=== PATIENT | male | born 1950 | race Caucasian/White ===

== ENCOUNTER 2019-08-16 09:09 | Observation (INO) | payer OTHER ==
[2019-08-16] MEDS ORDERED: ASPIRIN 81 MG CHEWABLE TABLETS PO ONE (09:33)
[2019-08-16] MEDS ORDERED: ASPIRIN COATED 81 MG TABLET.EC ONE (09:45)
--- NOTE | 2019-08-16 10:01 | PDOC ---
History of Present Illness - General Chief Complaint: Chest Pain Stated Complaint: CHEST PAIN Time Seen by Provider: 08/16/19 09:17 - History of Present Illness Initial Comments: 08/16/19 09:57 Mr. Guerrero is a 68 yo male w/ pmh of hepatic fibrosis who presents for evaluation of 2 day history of chest pain. 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 Patient took 2 baby aspirin last night and 800mg motrin for the pain. Denies any other symptoms however reports his pain has started to radiate along his L shoulder. No other complaints at this time. Past History - Past Medical History Allergies/Adverse Reactions: Allergies Allergy/AdvReac Type Severity Reaction Status Date / Time No Known Allergies Allergy Verified 08/16/19 09:13 Home Medications: Ambulatory Orders Omeprazole Magnesium [Prilosec Otc] 20 mg PO DAILY 08/16/19 Asthma: Yes Cancer: Yes (prostate) COPD: No - Psycho Social/Smoking Cessation Hx Smoking History: Never smoked Information on smoking cessation initiated: No Hx Alcohol Use: Yes Drug/Substance Use Hx: No Review of Systems - Review of Systems Comments:: 08/16/19 10:00 GENERAL/CONSTITUTIONAL: No fever or chills. No weakness. HEAD, EYES, EARS, NOSE AND THROAT: No change in vision. No ear pain or discharge. No sore throat. CARDIOVASCULAR: +Chest pain as described. No shortness of breath RESPIRATORY: No cough, wheezing, or hemoptysis. GASTROINTESTINAL: No nausea, vomiting, diarrhea or constipation. GENITOURINARY: No dysuria, frequency, or change in urination. MUSCULOSKELETAL: No joint or muscle swelling or pain. No neck or back pain. SKIN: No rash NEUROLOGIC: No headache, vertigo, loss of consciousness, or change in strength/ sensation. ENDOCRINE: No increased thirst. No abnormal weight change HEMATOLOGIC/LYMPHATIC: No anemia, easy bleeding, or history of blood clots. ALLERGIC/IMMUNOLOGIC: No hives or skin allergy. *Physical Exam - Vital Signs Last Vital Signs Temp Pulse Resp BP Pulse Ox 97.5 F L 65 18 153/81 98 08/16/19 09:11 08/16/19 09:11 08/16/19 09:11 08/16/19 09:11 08/16/19 09:11 - Physical Exam Comments: 08/16/19 10:00 GENERAL: Awake, alert, and fully oriented, in no acute distress HEAD: No signs of trauma, normocephalic, atraumatic EYES: PERRLA, EOMI, sclera anicteric, conjunctiva clear ENT: Auricles normal inspection, hearing grossly normal, nares patent, oropharynx clear without exudates. Moist mucosa NECK: Normal ROM, supple, no lymphadenopathy, JVD, or masses LUNGS: No distress, speaks full sentences, clear to auscultation bilaterally HEART: Regular rate and rhythm, normal S1 and S2, no murmurs, rubs or gallops, peripheral pulses normal and equal bilaterally. ABDOMEN: Soft, nontender, normoactive bowel sounds. No guarding, no rebound. No masses EXTREMITIES: Normal inspection, Normal range of motion, no edema. No clubbing or cyanosis. NEUROLOGICAL: Cranial nerves II through XII grossly intact. Normal speech, normal gait, no focal sensorimotor deficits SKIN: Warm, Dry, normal turgor, no rashes or lesions noted. Heart Score/ECG Review - History History: Moderately suspicious - Electrocardiogram EKG: Normal - Age Age: >/= 65 - Risk Factors Based on the list above the patient has:: No risk factors known - Troponin Troponin: </= normal limit - Score Heart Score - Total: 3 ED Treatment Course - LABORATORY CBC & Chemistry Diagram: 08/16/19 09:50 08/16/19 09:50 - RADIOLOGY Radiology Studies Ordered: Category Date Time Status CHEST X-RAY PORTABLE* [RAD] Stat Radiology 08/16/19 09:33 Taken - Medications Given in the ED: ED Medications Discontinued Medications Generic Name Dose Route Start Last Admin Trade Name Freq PRN Reason Stop Dose Admin Aspirin 324 mg 08/16/19 09:33 08/16/19 09:55 Asa - PO 08/16/19 09:34 324 mg ONCE ONE Administration Medical Decision Making - Medical Decision Making 08/16/19 11:01 Mr. Guerrero is a 68 yo male w/ pmh as described who presents for evaluation of chest pain concerning for MSK strain vs. ACS vs. pulmonary process. Patient evaluated with EKG, CXR, cardiac labs. EKG sinus sandeep to 54 with normal access , normal intervals, no ST elevation or depression. 08/16/19 11:53 Labs non-contributory as below. Discussed patient with PCP who has not seen patient recently. Last Echo 2012 and showed moderate MR with 55% EF. Patient will come in to hospital for further evaluation by cardiology and echo. Inpatient team paged for admission. 08/16/19 12:02 CXR normal. 08/16/19 13:29 Patient admitted to hospitalist for further evaluation. Laboratory Results - last 24 hr 08/16/19 08/16/19 08/16/19 09:50 09:50 09:50 WBC 3.1 L RBC 3.70 L Hgb 13.9 Hct 39.3 MCV 106.0 H MCH 37.4 H MCHC 35.3 RDW 14.1 Plt Count 226 MPV 6.2 L Absolute Neuts (auto) 1.3 L Neutrophils % 41.6 L Lymphocytes % 40.6 H Monocytes % 12.7 H Eosinophils % 4.2 Basophils % 0.9 Nucleated RBC % 0 PT with INR INR PTT (Actin FS) Cancelled Sodium 142 Potassium 3.3 L Chloride 107 Carbon Dioxide 25 Anion Gap 11 BUN 5.0 L Creatinine 0.6 Est GFR (CKD-EPI)AfAm 118.07 Est GFR (CKD-EPI)NonAf 101.87 Random Glucose 82 Calcium 8.1 L Total Bilirubin 1.3 H AST 112 H ALT 36 Alkaline Phosphatase 124 H Creatine Kinase 313 H Creatine Kinase Index 1.9 CK-MB (CK-2) 6.0 H Troponin I 0.03 Total Protein 6.7 Albumin 3.3 L Alcohol, Quantitative 174.9 H 08/16/19 09:50 WBC RBC Hgb Hct MCV MCH MCHC RDW Plt Count MPV Absolute Neuts (auto) Neutrophils % Lymphocytes % Monocytes % Eosinophils % Basophils % Nucleated RBC % PT with INR 12.00 INR 1.02 PTT (Actin FS) 30.0 Sodium Potassium Chloride Carbon Dioxide Anion Gap BUN Creatinine Est GFR (CKD-EPI)AfAm Est GFR (CKD-EPI)NonAf Random Glucose Calcium Total Bilirubin AST ALT Alkaline Phosphatase Creatine Kinase Creatine Kinase Index CK-MB (CK-2) Troponin I Total Protein Albumin Alcohol, Quantitative Discharge - Discharge Information Problems reviewed: Yes Clinical Impression/Diagnosis: Chest pain Qualifiers: Chest pain type: unspecified Qualified Code(s): R07.9 - Chest pain, unspecified - Admission Yes - Follow up/Referral Referrals: Abelardo Trotter MD [Primary Care Provider] - - Patient Discharge Instructions - Post Discharge Activity
--- NOTE | 2019-08-16 10:05 | PDOC ---
Attending Attestation - Resident Resident Name: Eleazar High - ED Attending Attestation I have performed the following: I have examined & evaluated the patient, The case was reviewed & discussed with the resident, I agree w/resident's findings & plan, Exceptions are as noted - HPI HPI: 08/16/19 10:02 68 yo male no pmhx , here with c/o chest pain. started two days ago. 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 today had similar pain Denies any leg swelling no associated shortness of breath diaphoresis or nausea. Patient has not had any recent travel no history of PE or DVT. No history of similar pain in the past. Did have a nuclear stress test approximately 4 years ago which she states was normal by a doctor in [place]. No fevers chills no cough did take 2 baby aspirins last evening did not take any this morning - Physicial Exam PE: 08/16/19 10:04 Awake alert no acute distress lungs are clear bilaterally there is no chest wall tenderness heart is regular without any murmurs rubs or gallops abdomen is soft and nontender skin is warm and dry extremities are warm well perfused there is no noted peripheral edema or calf tenderness neurologically patient is awake alert oriented x3. Pulses are symmetric - Medical Decision Making 08/16/19 10:04 5-year-old male no past medical history here today complaining of chest pain. Differential angina MSK strain infection such as pneumonia GERD plan CBC CMP troponin EKG chest x-ray. Due to the patient's age and concerning story of his symptoms will most likely require observation on telemetry 08/16/19 12:14 pt etoh level 174. ekg with out acute ischemic changes. cXR negative. labs noted for mildly low wbc, noted min LFT elevation ( pt has had in the past ) and trop negative. CKMB is 6. will admit to telemetry r/o ACS. may require CIWA precautions. states drinks 4 - 5 drinks daily. Heart Score/ECG Review - History History: Highly suspicious - Electrocardiogram EKG: Non specific repolarization disturbance - Age Age: >/= 65 - Risk Factors Based on the list above the patient has:: 1-2 risk factors - Troponin Troponin: </= normal limit - Score Heart Score - Total: 6 #1 General ECG Interpretation: Sinus Rhythm, Normal Rate (54), Normal Intervals, No acute ischemic changes
--- NOTE | 2019-08-16 10:14 | EKG ---
Test Reason : Blood Pressure : / mmHG Vent. Rate : 054 BPM Atrial Rate : 054 BPM P-R Int : 136 ms QRS Dur : 092 ms QT Int : 428 ms P-R-T Axes : 016 057 052 degrees QTc Int : 405 ms SINUS BRADYCARDIA OTHERWISE NORMAL ECG NO PREVIOUS ECGS AVAILABLE Confirmed by SWEETIE MIRANDA MD ([id number]) on 08/16/2019 10:13:53 AM Referred By: Confirmed By:SWEETIE MIRANDA MD
[2019-08-16 10:25] LABS: BASO % 0.9 % (0-2.0); EOS % 4.2 % (0-4.5); HEMATOCRIT 39.3 % (35.4-49); HEMOGLOBIN 13.9 GM/dL (11.7-16.9); LYMPH % 40.6 % (8-40); MCH 37.4 pg (25.7-33.7); MCHC 35.3 g/dl (32.0-35.9); MEAN PLT VOLUME 6.2 fl (7.5-11.1); MONO % 12.7 % (3.8-10.2); NEUT % 41.6 % (42.8-82.8); PLATELET COUNT 226 K/MM3 (134-434); RDW 14.1 % (11.9-15.9); WHITE BLOOD COUNT 3.1 K/mm3 (4.0-10.0)
[2019-08-16 10:56] LABS: ALBUMIN 3.3 g/dl (3.4-5.0); BILIRUBIN,TOTAL 1.3 mg/dL (0.2-1); CALCIUM 8.1 mg/dL (8.5-10.1); CREATININE 0.6 mg/dL (0.55-1.3); POTASSIUM 3.3 mmol/L (3.5-5.1); TOT PROT 6.7 g/dl (6.4-8.2)
[2019-08-16 10:57] LABS: INR 1.02 (0.83-1.09)
[2019-08-16 13:09] LABS: ANISOCYTOSIS 1+; MACROCYTOSIS 1+; PLATELET ESTIMATE NORMAL
[2019-08-16] MEDS ORDERED: ACETAMINOPHEN 325 MG TABLET (FP) PO PRN (18:44)
--- NOTE | 2019-08-16 18:47 | HP ---
Admitting History and Physical - Primary Care Physician PCP: Shnaiqua Zelaya - Admission History of Present Illness: 68 yo male no pmhx , here with c/o chest pain. started two days ago. 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 today had similar pain Denies any leg swelling no associated shortness of breath diaphoresis or nausea. Patient has not had any recent travel no history of PE or DVT. No history of similar pain in the past. Did have a nuclear stress test approximately 4 years ago which she states was normal by a doctor in [place]. No fevers chills no cough did take 2 baby aspirins last evening did not take any this morning - Smoking History Smoking history: Never smoked - Alcohol/Substance Use Hx Alcohol Use: Yes Home Medications - Allergies Allergies/Adverse Reactions: Allergies Allergy/AdvReac Type Severity Reaction Status Date / Time No Known Allergies Allergy Verified 08/16/19 09:13 - Home Medications Home Medications: Ambulatory Orders Omeprazole Magnesium [Prilosec Otc] 20 mg PO DAILY 08/16/19 Physical Examination Vital Signs: Vital Signs Temperature 97.8 F 08/16/19 18:17 Pulse Rate 66 08/16/19 18:17 Respiratory Rate 16 08/16/19 18:17 Blood Pressure 156/86 08/16/19 18:17 O2 Sat by Pulse Oximetry (%) 97 08/16/19 18:17 Constitutional: Yes: No Distress HENT: Yes: Atraumatic Neck: Yes: Supple Cardiovascular: Yes: Regular Rate and Rhythm Respiratory: Yes: CTA Bilaterally Gastrointestinal: Yes: Normal Bowel Sounds Extremities: Yes: WNL Edema: No Neurological: Yes: Alert, Oriented Labs: CBC, BMP 08/16/19 09:50 08/16/19 09:50 Imaging - Results X-ray: Report Reviewed Problem List - Problems (1) Chest pain Assessment/Plan: tele monitoring fu cardiac profile cardiology consult Code(s): R07.9 - CHEST PAIN, UNSPECIFIED Qualifiers: Chest pain type: unspecified Qualified Code(s): R07.9 - Chest pain, unspecified (2) Alcohol abuse Assessment/Plan: drinks 2-3 times per week Code(s): F10.10 - ALCOHOL ABUSE, UNCOMPLICATED (3) HTN (hypertension) Assessment/Plan: monitor will start meds awaiting cardio input Code(s): I10 - ESSENTIAL (PRIMARY) HYPERTENSION Assessment/Plan Laboratory Tests 08/16/19 08/16/19 08/16/19 09:50 09:50 09:50 WBC 3.1 L RBC 3.70 L Hgb 13.9 Hct 39.3 MCV 106.0 H MCH 37.4 H MCHC 35.3 RDW 14.1 Plt Count 226 MPV 6.2 L Absolute Neuts (auto) 1.3 L Neutrophils % 41.6 L Lymphocytes % 40.6 H Monocytes % 12.7 H Eosinophils % 4.2 Basophils % 0.9 Nucleated RBC % 0 Hypochromia 0 Platelet Estimate Normal Polychromasia 2+ Poikilocytosis 0 Anisocytosis 1+ Microcytosis 0 Macrocytosis 1+ PT with INR INR PTT (Actin FS) Cancelled Sodium 142 Potassium 3.3 L Chloride 107 Carbon Dioxide 25 Anion Gap 11 BUN 5.0 L Creatinine 0.6 Est GFR (CKD-EPI)AfAm 118.07 Est GFR (CKD-EPI)NonAf 101.87 Random Glucose 82 Calcium 8.1 L Total Bilirubin 1.3 H AST 112 H ALT 36 Alkaline Phosphatase 124 H Creatine Kinase 313 H Creatine Kinase Index 1.9 CK-MB (CK-2) 6.0 H Troponin I 0.03 Total Protein 6.7 Albumin 3.3 L Alcohol, Quantitative 174.9 H 08/16/19 09:50 WBC RBC Hgb Hct MCV MCH MCHC RDW Plt Count MPV Absolute Neuts (auto) Neutrophils % Lymphocytes % Monocytes % Eosinophils % Basophils % Nucleated RBC % Hypochromia Platelet Estimate Polychromasia Poikilocytosis Anisocytosis Microcytosis Macrocytosis PT with INR 12.00 INR 1.02 PTT (Actin FS) 30.0 Sodium Potassium Chloride Carbon Dioxide Anion Gap BUN Creatinine Est GFR (CKD-EPI)AfAm Est GFR (CKD-EPI)NonAf Random Glucose Calcium Total Bilirubin AST ALT Alkaline Phosphatase Creatine Kinase Creatine Kinase Index CK-MB (CK-2) Troponin I Total Protein Albumin Alcohol, Quantitative Active Medications Generic Name Dose Route Start Last Admin Trade Name Freq PRN Reason Stop Dose Admin Acetaminophen 650 mg 08/16/19 18:44 Tylenol - PO Q6H PRN FEVER Pantoprazole Sodium 20 mg 08/17/19 10:00 Protonix - PO DAILY KEELY Active Medications Generic Name Dose Route Start Last Admin Trade Name Freq PRN Reason Stop Dose Admin Acetaminophen 650 mg 08/16/19 18:44 Tylenol - PO Q6H PRN FEVER Amlodipine Besylate 5 mg 08/17/19 15:45 08/17/19 15:41 Norvasc - PO 5 mg DAILY KEELY Administration Pantoprazole Sodium 20 mg 08/17/19 10:00 08/17/19 09:41 Protonix - PO 20 mg DAILY KEELY Administration Potassium Chloride 40 meq 08/17/19 17:15 K-Dur - PO DAILY KEELY
[2019-08-17 01:01] VITALS: BMI 20.9
[2019-08-17] MEDS ORDERED: FLU VACCINE QUAD 60 MCG/0.5 ML (MDV 19-20) IM ONE (10:00)
[2019-08-17] MEDS ORDERED: PATIENT'S OWN MEDICATION (NON-FORMULARY) (Omeprazole Magnesium [Prilosec Otc] 20 MG) PO SCH (10:00)
[2019-08-17] MEDS ORDERED: PANTOPRAZOLE 20 MG TABLET (FP) PO SCH (10:00)
--- NOTE | 2019-08-17 12:40 | CON.CARD ---
Consult Consult Specialty:: Cardiology Referred by:: Dr. 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 He took Motrin initially but pain continued so he came in for further evaluation. Currently, he feels better. He denies shortness of breath or palpitations. He denies paroxysmal nocturnal dyspnea or orthopnea. He denies fever or chills. He denies nausea, vomiting, diarrhea or abdominal pain. He denies headache or lightheadedness. - History Source History Provided By: Patient, Medical Record Limitations to Obtaining History: No Limitations - Past Medical History Hepatobiliary: Yes: Other (Hepatic fibrosis) - Past Surgical History Past Surgical History: Yes: None - Alcohol/Substance Use Hx Alcohol Use: Yes (Social) - Smoking History Smoking history: Former smoker Have you smoked in the past 12 months: No If you are a former smoker, when did you quit?: 20 years ago Home Medications - Allergies Allergies/Adverse Reactions: Allergies Allergy/AdvReac Type Severity Reaction Status Date / Time No Known Allergies Allergy Verified 08/16/19 09:13 - Home Medications Home Medications: Ambulatory Orders Omeprazole Magnesium [Prilosec Otc] 20 mg PO DAILY 08/16/19 Family Medical History Family History: Denies Review of Systems - Review of Systems Constitutional: denies: Chills, Fever Cardiovascular: reports: Chest Pain. denies: Palpitations, Shortness of Breath Respiratory: denies: Cough, Hemoptysis, Orthopnea, PND, SOB, SOB on Exertion Gastrointestinal: denies: Abdominal Pain, Constipation, Diarrhea, Melena, Nausea , Rectal Bleeding, Vomiting Genitourinary: denies: Dysuria, Hematuria Musculoskeletal: denies: Back Pain, Joint Pain Neurological: denies: Dizziness, Headache, Seizure, Syncope Vital Signs: Vital Signs Temperature 98 F 08/17/19 10:00 Pulse Rate 88 08/17/19 10:00 Respiratory Rate 18 08/17/19 10:00 Blood Pressure 150/62 08/17/19 10:00 O2 Sat by Pulse Oximetry (%) 97 08/16/19 22:00 Eyes: Yes: Conjunctiva Clear, PERRL HENT: Yes: Atraumatic Neck: Yes: Supple Respiratory: Yes: Regular, CTA Bilaterally Gastrointestinal: Yes: Normal Bowel Sounds, Soft. No: Tenderness Cardiovascular: Yes: Regular Rate and Rhythm JVD: No Carotid Bruit: No PMI: Non-Displaced Heart Sounds: Yes: S1, S2. No: Gallop Murmur: No: Systolic Murmur, Diastolic Murmur Edema: No - Other Data Labs, Other Data: CBC, BMP 08/16/19 09:50 08/16/19 09:50 INR, PTT INR 1.02 (0.83-1.09) 08/16/19 09:50 Sinus bradycardia otherwise WNL Imaging - Results Chest X-ray: Report Reviewed (Unremarkable) EKG: Report Reviewed Problem List - Problems (1) HTN (hypertension) Code(s): I10 - ESSENTIAL (PRIMARY) HYPERTENSION (2) Hepatic fibrosis Code(s): K74.0 - HEPATIC FIBROSIS (3) Chest pain Code(s): R07.9 - CHEST PAIN, UNSPECIFIED Qualifiers: Chest pain type: unspecified Qualified Code(s): R07.9 - Chest pain, unspecified Assessment/Plan 1. Chest pain syndrome likely musculoskeletal 2. History of hepatic fibrosis 3. HTN PLAN: 1. Echocardiography to assess LV/RV and valvular function 2. Troponin negative 3. If BP remains elevated, consider anti-hypertensives such as Amlodipine or ACEI or ARB 4. If need further cardiac work up, can be done as outpatient If above negative, discharge planning Gregorio Rosas MD
--- NOTE | 2019-08-17 12:59 | ECHO ---
Version: 1 Name: VANDANA GARIBAY Exam: Adult Echocardiogram Study Date: 08/17/2019, 8:29 AM Age: 68 Years MMode/2D Measurements & Calculations IVSd: 0.77 cm LVIDs: 3.4 cm LVIDd: 4.7 cm LVPWd: 0.73 cm LVOT diam: 2.23 cm Ao root diam: 3.6 cm LA dimension: 3.0 cm Doppler Measurements & Calculations MV E max jj: 42.0 cm/sec Med E/e': 6.0 MV A max jj: 76.0 cm/sec Med Peak E' Jj: 7.0 cm/sec MV E/A: 0.55 Lat E/e': 6.2 Lat Peak E' Jj: 6.8 cm/sec MR max P.3 mmHg Ao max P.1 mmHg Ao V2 max: 123.8 cm/sec Left Ventricle The left ventricular size, thickness and function are normal. Ejection Fraction = 65%. The transmitr al spectral Doppler flow pattern is suggestive of impaired LV relaxation. Right Ventricle The right ventricle is normal in size and function. Atria Normal left and right atrial size and function. Mitral Valve There is mild mitral annular calcification. There is trace to mild mitral regurgitation. Tricuspid Valve The tricuspid valve is normal in structure and function. Right ventricular systolic pressure is norm al. Aortic Valve There is mild aortic valve thickening. No hemodynamically significant valvular aortic stenosis. Pulmonic Valve The pulmonic valve is not well visualized. Great Vessels The aortic root is normal size. Normal aortic arch, descending and ascending aorta. Pericardium/Pleura There is no pericardial effusion. Summary Statements The left ventricular size, thickness and function are normal. Ejection Fraction = 65%. The right ventricle is normal in size and function. Normal left and right atrial size and function. There is mild aortic valve thickening. No hemodynamically significant valvular aortic stenosis. There is mild mitral annular calcification. There is trace to mild mitral regurgitation. The tricuspid valve is normal in structure and function. MD Susanna Connor08/17/2019, 11:58 AM Ordering Physician: Shaniqua Zelaya Referring Physician: SHANIQUA SO Performed By: Terrie Alcantar
[2019-08-17 13:57] VITALS: TEMP 98.2
--- NOTE | 2019-08-17 15:33 | PN ---
Progress Note, Physician - Current Medication List Current Medications: Active Medications Acetaminophen (Tylenol -) 650 mg PO Q6H PRN PRN Reason: FEVER Pantoprazole Sodium (Protonix -) 20 mg PO DAILY KEELY Last Admin: 08/17/19 09:41 Dose: 20 mg - Objective Vital Signs: Vital Signs Temperature 98.2 F 08/17/19 13:57 Pulse Rate 81 08/17/19 13:57 Respiratory Rate 20 08/17/19 13:57 Blood Pressure 143/77 08/17/19 13:57 O2 Sat by Pulse Oximetry (%) 98 08/17/19 10:44 Labs: CBC, BMP 08/16/19 09:50 08/16/19 09:50 INR, PTT INR 1.02 (0.83-1.09) 08/16/19 09:50 Problem List - Problems (1) Chest pain Code(s): R07.9 - CHEST PAIN, UNSPECIFIED Qualifiers: Chest pain type: unspecified Qualified Code(s): R07.9 - Chest pain, unspecified
[2019-08-17] MEDS ORDERED: amLODIPine BESYLATE 5 MG TABLET (FP) PO SCH (15:45)
[2019-08-17 16:52] VITALS: BP 141/102; PULSE 84
[2019-08-17 16:59] LABS: ALBUMIN 3.6 g/dl (3.4-5.0); BILIRUBIN,TOTAL 3.1 mg/dL (0.2-1); BLOOD UREA NITROGEN 7.5 mg/dL (7-18); CALCIUM 8.4 mg/dL (8.5-10.1); CREATININE 0.7 mg/dL (0.55-1.3); POTASSIUM 3.4 mmol/L (3.5-5.1)
--- NOTE | 2019-08-17 17:08 | DS ---
Physical Examination Vital Signs: Vital Signs Temperature 98.2 F 08/17/19 13:57 Pulse Rate 84 08/17/19 16:51 Respiratory Rate 18 08/17/19 16:51 Blood Pressure 141/102 H 08/17/19 16:51 O2 Sat by Pulse Oximetry (%) 98 08/17/19 10:44 Constitutional: Yes: Anxious HENT: Yes: Atraumatic Neck: Yes: Supple Cardiovascular: Yes: Regular Rate and Rhythm Respiratory: Yes: CTA Bilaterally Gastrointestinal: Yes: Normal Bowel Sounds Extremities: Yes: WNL Neurological: Yes: Alert, Oriented Labs: CBC, BMP 08/16/19 09:50 08/17/19 14:05 Discharge Summary Problems reviewed: Yes Reason For Visit: CHEST PAIN Current Active Problems Chest pain (Acute) HTN (hypertension) (Acute) Hepatic fibrosis (Acute) - Instructions Diet, Activity, Other Instructions: monitor bp stop drinking etoh follow up cardiology Referrals: Abelardo Trotter MD [Primary Care Provider] - - Home Medications Comprehensive Discharge Medication List: Ambulatory Orders Omeprazole Magnesium [Prilosec Otc] 20 mg PO DAILY 08/16/19
[2019-08-17] MEDS ORDERED: POTASSIUM CHLORIDE TABS 20 MEQ TABLET.ER (FP) PO SCH (17:15)
== END 2019-08-17 18:14 | disposition home or self-care (01) ==
LOC: JER 09:09 → JERBED 11:52 → J4W 20:00
PROVIDERS: ADMIT Internal Medicine; ATTEND Internal Medicine
DX: R07.89 Other chest pain (principal); I10 Essential (primary) hypertension; K74.0 Hepatic fibrosis; J45.909 Unspecified asthma, uncomplicated; Z85.46 Personal history of malignant neoplasm of prostate; F10.10 Alcohol abuse, uncomplicated; Z23 Encounter for immunization
CPT/HCPCS: 36415; 71045-TC-FY; 80053; 80307; 82550; 82553; 84484; 85025; 85610; 85730; 93005; 93010; 93306-TC; 99285-25; G0378; Q2036

== ENCOUNTER 2020-01-04 11:55 | Emergency (ER) | payer OTHER ==
[2020-01-04 12:04] VITALS: BMI 23.6
--- NOTE | 2020-01-04 12:51 | PDOC ---
History of Present Illness <Teena Mayers - Last Filed: 01/04/20 15:02> <Cherie Grimm - Last Filed: 01/06/20 10:37> - General Chief Complaint: Blood Pressure Problem Stated Complaint: HIGH BLOOD PRESSURE, Hypokalemia Time Seen by Provider: 01/04/20 12:50 Past History - Past Medical History Asthma: No Cancer: Yes (prostate) COPD: No HTN: Yes - Psycho Social/Smoking Cessation Hx Smoking History: Never smoked Have you smoked in the past 12 months: No If you are a former smoker, when did you quit?: 20 years ago Information on smoking cessation initiated: No Hx Alcohol Use: No Drug/Substance Use Hx: No <Teena Mayers - Last Filed: 01/04/20 15:02> <Cherie Grimm - Last Filed: 01/06/20 10:37> - Past Medical History Allergies/Adverse Reactions: Allergies Allergy/AdvReac Type Severity Reaction Status Date / Time No Known Allergies Allergy Verified 01/04/20 12:04 Home Medications: Ambulatory Orders Omeprazole Magnesium [Prilosec Otc] 20 mg PO DAILY 08/16/19 Amlodipine Besylate [Norvasc -] 5 mg PO DAILY #30 tablet 08/17/19 *Physical Exam - Vital Signs Last Vital Signs Temp Pulse Resp BP Pulse Ox 81 19 174/96 H 99 01/04/20 12:01 01/04/20 12:01 01/04/20 12:01 01/04/20 12:01 <Teena Mayers - Last Filed: 01/04/20 15:02> - Vital Signs Last Vital Signs Temp Pulse Resp BP Pulse Ox 65 17 149/79 99 01/04/20 15:18 01/04/20 15:18 01/04/20 15:18 01/04/20 15:18 <Cherie Grimm - Last Filed: 01/06/20 10:37> ED Treatment Course - LABORATORY CBC & Chemistry Diagram: 01/04/20 13:15 01/04/20 13:15 <Teena Mayers - Last Filed: 01/04/20 15:02> - LABORATORY CBC & Chemistry Diagram: 01/04/20 13:15 01/04/20 13:15 - ADDITIONAL ORDERS Additional order review: 01/04/20 13:15 RBC 4.02 MCV 103.1 H MCHC 35.5 RDW 14.3 MPV 6.6 L Neutrophils % 71.2 D Lymphocytes % 14.8 D Monocytes % 12.5 H Eosinophils % 1.1 Basophils % 0.4 - Medications Given in the ED: ED Medications Discontinued Medications Generic Name Dose Route Start Last Admin Trade Name Luiz PRN Reason Stop Dose Admin Magnesium Sulfate 1 gm 01/04/20 14:18 01/04/20 14:26 Magnesium Sulfate IVPB 01/04/20 14:19 1 gm ONCE ONE Administration Potassium Chloride 40 meq 01/04/20 14:18 01/04/20 14:25 K-Dur - PO 01/04/20 14:19 40 meq ONCE ONE Administration <Cherie Grimm - Last Filed: 01/06/20 10:37> Medical Decision Making - Medical Decision Making 01/04/20 13:25 HPI: 69yo M hx reflux (poorly compliant with omeprazole), anxiety (no medications) and tremors/trembling, HTN (noncompliant with amlodipine), hx smoking (quit 15yrs ago), alcohol abuse (daily 4+ vodkas of unknown size, last drink 1999 yesterday, denies hx withdrawal or seizures), and hepatic fibrosis sent from [facility] for hypokalemia (2.8) and pt's c/o chest tightness and HTN. Last admission 08/16/19-08/17/19 for same sx per pt, echo normal LV function with EF 65 %, K 3.3/3.4, alcohol elevated, prescribed amlodipine for HTN. Pt has not had sx or seen doctor since then. 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 endorses increased stress and anxiety in pt recently. Last night ~8-9pm pt had nonradiating nonexertional substernal chest "feeling" (denies pain or discomfort , endorses possibly feeling like burning similar to reflux) still present this AM so took BP and got 192/100 (normally 140s/60s checks every few days) so at 0800 took omeprazole, 2 baby aspirin, and amlodipine 5mg (1st time taking) and felt a little better. Chest feeling has resolved now. Denies hx ACS/IA, FHx early CAD, hx DVT/PE, hormone use, diaphoresis, fever, chills, fatigue, headache , numbness/tingling, weakness, vision changes, shortness of breath, cough, palpitations, leg swelling, abdominal pain, blood in stool, diarrhea, constipation, nausea, vomiting, dysuria, hematuria, confusion. ROS: Constitutional: Negative for chills, fever, fatigue, diaphoresis. HENT: Negative for sore throat, rhinorrhea, congestion. Eyes: Negative for visual disturbance. Respiratory: Negative for shortness of breath, cough, and wheezing. Cardiovascular: Positive for chest "feeling" and high BP. Negative for chest pain, palpitations, and leg swelling. Gastrointestinal: Negative for abdominal pain, blood in stool, constipation, diarrhea, nausea, and vomiting. Genitourinary: Negative for dysuria, flank pain, and hematuria. Musculoskeletal: Negative for myalgias, back pain, and neck pain. Skin: Negative for rash. Neurological: Positive for light-headedness. Negative for vertigo, syncope, weakness, numbness and headaches. Psychiatric/Behavioral: Negative for behavioral problems and confusion. PE: Gen: Alert, NAD, anxious-appearing, trembling HEENT: PERRL, EOMI, MMM, NCAT. No conjunctival pallor. Sclera are non-icteric. CV: Regular rate and rhythm. No murmurs, rubs, or gallops. PULM: No resp distress. CTAB, no wheezes, rales, or rhonchi. ABD: soft, NT/ND, no rebound tenderness or guarding, no CVA tenderness. BACK: No TTP of c/t/l-spine. No step-offs or deformities. MSK: No bony deformities. 2+ pulses in all extremities. NEURO: AAOx3. PERRL. CN 2-12 intact. 5/5 strength in all extremities. Sensation to light touch intact in all extremities. No pronator drift. No dysmetria. No dysdiadochokinesia. No abnormal nystagmus. Normal gait. No asterixis. EXTREMITIES: No cyanosis. No clubbing. No edema. No calf tenderness. PSYCH: Anxious mood and normal thought pattern. SKIN: Warm and dry. Normal capillary refill. No rashes. No jaundice. MDM: 69yo M hx reflux (poorly compliant with omeprazole), anxiety (no medications) and tremors/trembling, HTN (noncompliant with amlodipine), hx smoking (quit 15yrs ago), alcohol abuse (daily 4+ vodkas of unknown size, last drink 1999 yesterday, denies hx withdrawal or seizures), and hepatic fibrosis sent from [facility] for hypokalemia (2.8) today, lightheadedness since 1499 yesterday, and chest "feeling" since 1999 last PM. Hemodynamically stable, afebrile, neurologically intact, anxious-appearing. Ddx: alcohol intoxication, alcohol withdrawal, medication overdose, anxiety, metabolic derangement, anemia, thyroid pathology, infection, ACS/IA (HEART score 3 for age and HTN), arrhythmia, pulmonary pathology such as COPD exacerbation or PNA (low concern due to lungs CTAB, lack of hx of lung problems , and lack of cough or SOB). Presentation not consistent with dissection or esophageal rupture. Lack of SOB or RFs for PE/DVT make PE of very low concern - no further testing indicated at this time. No neurologic deficits or vertigo concerning for stroke or ICH. -EKG -CXR -CBC,CMP,Mg,Phos,TSH,cardiac profile,lipase -Dispo: likely admit tele obs pending w/u 01/04/20 13:35 EKG reviewed: 1327, NSR, 64bpm, normal axis, normal intervals, no TWIs, no ST elevations or depressions 01/04/20 14:19 CXR reviewed: no acute pathology Labs reviewed. K3.3, Mg 1.5 -Give K 40 PO, and Mg 1g IV CBC,CMP WBC 5.3 K/mm3 (4.0-10.0) 01/04/20 13:15 RBC 4.02 M/mm3 (4.00-5.60) 01/04/20 13:15 Hgb 14.7 GM/dL (11.7-16.9) 01/04/20 13:15 Hct 41.4 % (35.4-49) 01/04/20 13:15 MCV 103.1 fl (80-96) H 01/04/20 13:15 MCH 36.6 pg (25.7-33.7) H 01/04/20 13:15 MCHC 35.5 g/dl (32.0-35.9) 01/04/20 13:15 RDW 14.3 % (11.9-15.9) 01/04/20 13:15 Plt Count 237 K/MM3 (134-434) 01/04/20 13:15 MPV 6.6 fl (7.5-11.1) L 01/04/20 13:15 Absolute Neuts (auto) 3.8 K/mm3 (1.5-8.0) 01/04/20 13:15 Neutrophils % 71.2 % (42.8-82.8) D 01/04/20 13:15 Lymphocytes % 14.8 % (8-40) D 01/04/20 13:15 Monocytes % 12.5 % (3.8-10.2) H 01/04/20 13:15 Eosinophils % 1.1 % (0-4.5) 01/04/20 13:15 Basophils % 0.4 % (0-2.0) 01/04/20 13:15 Nucleated RBC % 0 % (0-0) 01/04/20 13:15 Sodium 137 mmol/L (136-145) 01/04/20 13:15 Potassium 3.3 mmol/L (3.5-5.1) L 01/04/20 13:15 Chloride 103 mmol/L (98-107) 01/04/20 13:15 Carbon Dioxide 25 mmol/L (21-32) 01/04/20 13:15 Anion Gap 9 MMOL/L (8-16) 01/04/20 13:15 BUN 5.1 mg/dL (7-18) L 01/04/20 13:15 Creatinine 0.6 mg/dL (0.55-1.3) 01/04/20 13:15 Est GFR (CKD-EPI)AfAm 117.24 01/04/20 13:15 Est GFR (CKD-EPI)NonAf 101.16 01/04/20 13:15 Random Glucose 99 mg/dL (74-106) 01/04/20 13:15 Calcium 8.9 mg/dL (8.5-10.1) 01/04/20 13:15 Phosphorus 3.0 mg/dL (2.5-4.9) 01/04/20 13:15 Magnesium 1.5 mg/dL (1.8-2.4) L 01/04/20 13:15 Total Bilirubin 4.2 mg/dL (0.2-1) H 01/04/20 13:15 AST 102 U/L (15-37) H 01/04/20 13:15 ALT 40 U/L (13-61) 01/04/20 13:15 Alkaline Phosphatase 140 U/L (45-117) H 01/04/20 13:15 Creatine Kinase 251 U/L (26-308) 01/04/20 13:15 Troponin I 0.02 ng/ml (0.00-0.05) 01/04/20 13:15 Total Protein 7.6 g/dl (6.4-8.2) 01/04/20 13:15 Albumin 3.7 g/dl (3.4-5.0) 01/04/20 13:15 Lipase 87 U/L (73-393) 01/04/20 13:15 TSH 2.13 uIU/ml (0.358-3.74) 01/04/20 13:15 01/04/20 15:02 Pt asymptomatic, wants to go home. Safe for discharge at this time. Will discharge home with PCP f/u. Return precautions given. Pt understands all discharge instructions and all questions were answered. <Teena Mayers - Last Filed: 01/04/20 15:02> Discharge - Discharge Information Problems reviewed: Yes - Admission No <Teena Mayers - Last Filed: 01/04/20 15:02> <Cherie Grimm - Last Filed: 01/06/20 10:37> - Discharge Information Clinical Impression/Diagnosis: Hypokalemia HTN (hypertension) Qualifiers: Hypertension type: unspecified Qualified Code(s): I10 - Essential (primary) hypertension Condition: Improved Disposition: HOME - Follow up/Referral Referrals: Abelardo Trotter MD [Primary Care Provider] - [facility] [place] [Provider Group] - Patient Discharge Instructions Patient Printed Discharge Instructions: The DASH Diet, DI for Hypokalemia, How to Monitor Your Blood Pressure at Home Additional Instructions: You have been seen in the Emergency Department. Your EKG, chest X-ray, and labs , including Troponin (a heart enzyme), show no signs concerning for an emergent condition such as a heart attack or pneumonia. Your potassium and magnesium ( electrolyte) levels were low so we gave you potassium and magnesium. At this time, it's most important to control your blood pressure. Don't take your Amlodipine until you see a primary care doctor. Follow the DASH diet attached to help your blood pressure. Take your blood pressure daily and log it in a journal to bring to your primary care doctor. Follow-up with your primary care doctor within 1 week. We have given you a referral to our primary care clinic, but you can also call your insurance to see if there is a primary care doctor better for your insurance. Call the office today to make an appointment. Return to the ED immediately if you experience chest pain, difficulty breathing , dizziness, blood pressure over 200/100, or any other new or worsening symptom.
--- NOTE | 2020-01-04 12:52 | PDOC ---
*Physical Exam - Vital Signs Last Vital Signs Temp Pulse Resp BP Pulse Ox 81 19 174/96 H 99 01/04/20 12:01 01/04/20 12:01 01/04/20 12:01 01/04/20 12:01 <Aylin Lakhani - Last Filed: 01/04/20 15:02> - Vital Signs Last Vital Signs Temp Pulse Resp BP Pulse Ox 81 19 174/96 H 99 01/04/20 12:01 01/04/20 12:01 01/04/20 12:01 01/04/20 12:01 <Cherie Grimm - Last Filed: 01/04/20 15:09> ED Treatment Course - LABORATORY CBC & Chemistry Diagram: 01/04/20 13:15 01/04/20 13:15 <Aylin Lakhani - Last Filed: 01/04/20 15:02> - LABORATORY CBC & Chemistry Diagram: 01/04/20 13:15 01/04/20 13:15 - ADDITIONAL ORDERS Additional order review: Laboratory Results 01/04/20 01/04/20 01/04/20 13:15 13:15 13:15 PTT (Actin FS) 30.7 Sodium 137 Potassium 3.3 L Chloride 103 Carbon Dioxide 25 Anion Gap 9 BUN 5.1 L Creatinine 0.6 Est GFR (CKD-EPI)AfAm 117.24 Est GFR (CKD-EPI)NonAf 101.16 Random Glucose 99 Calcium 8.9 Phosphorus 3.0 Magnesium 1.5 L Total Bilirubin 4.2 H AST 102 H ALT 40 Alkaline Phosphatase 140 H Creatine Kinase 251 Troponin I 0.02 Total Protein 7.6 Albumin 3.7 Lipase 87 TSH 2.13 Digoxin < 0.3 L 01/04/20 13:15 RBC 4.02 MCV 103.1 H MCHC 35.5 RDW 14.3 MPV 6.6 L Neutrophils % 71.2 D Lymphocytes % 14.8 D Monocytes % 12.5 H Eosinophils % 1.1 Basophils % 0.4 - Medications Given in the ED: ED Medications Discontinued Medications Generic Name Dose Route Start Last Admin Trade Name Freq PRN Reason Stop Dose Admin Magnesium Sulfate 1 gm 01/04/20 14:18 01/04/20 14:26 Magnesium Sulfate IVPB 01/04/20 14:19 1 gm ONCE ONE Administration Potassium Chloride 40 meq 01/04/20 14:18 01/04/20 14:25 K-Dur - PO 01/04/20 14:19 40 meq ONCE ONE Administration <Cherie Grimm - Last Filed: 01/04/20 15:09> Medical Decision Making - Medical Decision Making 01/04/20 12:52 Patient seen as pre-attending with Dr. Evangelista (PGY-1) and Dr. Grimm (Attending) 69 y/o male with a PMHx of HTN here with burning, substernal CP that started yesterday around 3 pm, resolved, and then started again this morning around 8 am. Chest pain is "burning" substernal without any radiation/shortness of breath/palpitations/lightheadedness. Measured his blood pressure at 192/100; states he measures his blood pressure multiple times weekly and it's 140/60. States he took Omeprazole and Amlodipine and 2 baby aspirin with little relief of his symptoms prompting him to go to urgent care. States he was evaluated for a similar pain last year in our hospital and however he has not taken his medications. Presents with EKG concerning for Dig toxicity and K+ 2.8 As per EMR, patient evaluated in our ED 08/2019 for CP - serial troponins (-) and discharged home on Amlodipine. Will monitor BP in ED - likely Asx HTN + GERD, patient does not require further medical evaluation as impateint. 01/04/20 13:42 Repeat BP @ bedside 144/84 01/04/20 15:00 D/c home with primary care referral Patient needs full PMD evaluation for appropriateness of anti-hypertensive regimen <Aylin Lakhani - Last Filed: 01/04/20 15:02> Discharge - Discharge Information Problems reviewed: Yes <Aylin Lakhani - Last Filed: 01/04/20 15:02> - Discharge Information Problems reviewed: Yes <Cherie Grimm - Last Filed: 01/04/20 15:09> - Discharge Information Clinical Impression/Diagnosis: HTN (hypertension) Qualifiers: Hypertension type: unspecified Qualified Code(s): I10 - Essential (primary) hypertension Condition: Improved Disposition: HOME - Follow up/Referral Referrals: Abelardo Trotter MD [Primary Care Provider] -
[2020-01-04 13:39] LABS: BASO % 0.4 % (0-2.0); EOS % 1.1 % (0-4.5); HEMATOCRIT 41.4 % (35.4-49); HEMOGLOBIN 14.7 GM/dL (11.7-16.9); LYMPH % 14.8 % (8-40); MCH 36.6 pg (25.7-33.7); MCHC 35.5 g/dl (32.0-35.9); MEAN CELL VOLUME 103.1 fl (80-96); MEAN PLT VOLUME 6.6 fl (7.5-11.1); MONO % 12.5 % (3.8-10.2); NEUT % 71.2 % (42.8-82.8); PLATELET COUNT 237 K/MM3 (134-434); RBC 4.02 M/mm3 (4.00-5.60); RDW 14.3 % (11.9-15.9); WHITE BLOOD COUNT 5.3 K/mm3 (4.0-10.0)
[2020-01-04 14:12] LABS: ALBUMIN 3.7 g/dl (3.4-5.0); BILIRUBIN,TOTAL 4.2 mg/dL (0.2-1); BLOOD UREA NITROGEN 5.1 mg/dL (7-18); CALCIUM 8.9 mg/dL (8.5-10.1); CREATININE 0.6 mg/dL (0.55-1.3); MAGNESIUM 1.5 mg/dL (1.8-2.4); POTASSIUM 3.3 mmol/L (3.5-5.1); TOT PROT 7.6 g/dl (6.4-8.2)
[2020-01-04] MEDS ORDERED: MAGNESIUM SULF 50% (8.12 MEQ/2 ML-1 GM VIAL) IVPB ONE (14:18)
[2020-01-04] MEDS ORDERED: POTASSIUM CHLORIDE TABS 20 MEQ TABLET.ER (FP) PO ONE ×2 (14:18→14:24)
[2020-01-04] MEDS ORDERED: MAGNESIUM 1GM/D5W - 1 GM/100 ML IVPB IVPB ONE (14:24)
--- NOTE | 2020-01-04 14:36 | PDOC ---
Attending Attestation - Resident Resident Name: Teena Mayers - ED Attending Attestation I have performed the following: I have examined & evaluated the patient, The case was reviewed & discussed with the resident, I agree w/resident's findings & plan - HPI HPI: 01/04/20 14:34 69yo M hx reflux (poorly compliant with omeprazole), anxiety (no medications) and tremors/trembling, HTN (noncompliant with amlodipine), hx smoking (quit 15yrs ago), alcohol abuse (daily 4+ vodkas of unknown size, last drink 1999 yesterday, denies hx withdrawal or seizures), and hepatic fibrosis sent from [facility] for hypokalemia (2.8) and pt's c/o chest tightness and HTN. Last admission 08/16/19-08/17/19 for same sx per pt, echo normal LV function with EF 65%, K 3.3/3.4, alcohol elevated, prescribed amlodipine for HTN. Pt has not had sx or seen doctor since then. 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 endorses increased stress and anxiety in pt recently. Last night ~ 8-9pm pt had nonradiating nonexertional substernal chest "feeling" (denies pain or discomfort, endorses possibly feeling like burning similar to reflux) still present this AM so took BP and got 192/100 (normally 140s/60s checks every few days) so at 0800 took omeprazole, 2 baby aspirin, and amlodipine 5mg (1st time taking) and felt a little better. Chest feeling has resolved now. Denies hx ACS/ [place], FHx early CAD, hx DVT/PE, hormone use, diaphoresis, fever, chills, fatigue, headache, numbness/tingling, weakness, vision changes, shortness of breath, cough, palpitations, leg swelling, abdominal pain, blood in stool, diarrhea, constipation, nausea, vomiting, dysuria, hematuria, confusion. - Physicial Exam PE: 01/04/20 14:34 Agree with the resident's HPI and PE as documented in the electronic medical record. NAD, well appearing, EOMI, PERRL, nl conjunctiva, anicteric; neck supple. lungs clear, RRR, abdomen soft nontender. no rebound, guarding. Back nontender. GRECO x4, no focal neuro deficits. No peripheral edema. normal color for ethnicity , WWP. - Medical Decision Making 01/04/20 14:34 Vital Signs Temp Pulse Resp BP Pulse Ox 81 19 174/96 H 99 01/04/20 12:01 01/04/20 12:01 01/04/20 12:01 01/04/20 12:01 Laboratory results reviewed, no evidence of anemia. Potassium is noted to be borderline low, 3.3 will replete orally. Creatinine function is also normal. Magnesium 1.5 will also replete. LFTs at baseline unremarkable, troponins negative x1, reassuring so unlikely to to be ACS or cardiac. Digoxin level is low no evidence of toxicity. TSH normal. 01/04/20 15:09 There is no evidence of endorgan damage, ECG is sinus rhythm without acute abnormalities. Chest pain and shortness of breath free, no syncope, neurologically intact and well-appearing otherwise. Blood pressure repeat has normalized down to 140s over 80s. Told patient not to take amlodipine for now, as he should get PCP followup and repeat BP. told to avoid stressors there are side effects to starting antihypertensive without formal repeat check on HTN. diet and exercise advised plans to establish care with Dr Zapien, his 's pcp Pt to be discharged in stable condition. Patient and family made aware of clinical impression, treatment recommendations and disposition plan, return precautions discussed (including but not limited to new or persistent/worsening symptoms, pain, fevers, or signs of infection, chest pain, respiratory distress , inability to tolerate oral intake, dehydration, syncope, or neurologic changes ). Follow up with PMD and/or specialist as recommended, follow up information provided, take medications as instructed for duration of time. continue with supportive care, avoid triggers and precipitants. All questions answered to patient's satisfaction and expressed understanding and comfort with this. At the time of discharge, the patient is alert, clinically improved, tolerating po and verbalizes understanding of instructions, satisfied with the care received and felt comfortable with the plan. Patient does not suffer from an acute life- threatening medical condition at this time and is safe for outpatient follow- up. 02/27/20 10:35 Heart Score/ECG Review #1 ECG reviewed & interpreted by me at: 13:30 General ECG Interpretation: Sinus Rhythm, Normal Rate, Normal Intervals 01/04/20 14:35 EKG normal sinus rhythm 64 bpm, no interval abnormalities, narrow QRS, ST and T wave segments and morphology normal.
--- NOTE | 2020-01-04 14:55 | EKG ---
Test Reason : Blood Pressure : / mmHG Vent. Rate : 061 BPM Atrial Rate : 060 BPM P-R Int : 000 ms QRS Dur : 096 ms QT Int : 438 ms P-R-T Axes : 000 062 059 degrees QTc Int : 440 ms POOR DATA QUALITY, INTERPRETATION MAY BE ADVERSELY AFFECTED JUNCTIONAL RHYTHM NONSPECIFIC ST ABNORMALITY ABNORMAL ECG WHEN COMPARED WITH ECG OF 16-AUG-2019 09:19, JUNCTIONAL RHYTHM HAS REPLACED SINUS RHYTHM Confirmed by Reed Dutta MD ([id number]) on 01/04/2020 2:54:59 PM Referred By: Confirmed By:Reed Dutta MD
[2020-01-04 15:18] VITALS: BP 149/79; PULSE 65
--- NOTE | 2020-01-05 16:45 | EKG ---
Test Reason : Blood Pressure : / mmHG Vent. Rate : 064 BPM Atrial Rate : 064 BPM P-R Int : 124 ms QRS Dur : 080 ms QT Int : 412 ms P-R-T Axes : 007 038 034 degrees QTc Int : 425 ms NORMAL SINUS RHYTHM NORMAL ECG Confirmed by MD MICHEL GREGORY ([id number]) on 01/05/2020 4:45:16 PM Referred By: Confirmed By:MARSHA MICHEL MD
== END 2020-01-04 15:25 | disposition home or self-care (01) ==
LOC: JER 11:55
PROC: 3E033GC Introduction of Other Therapeutic Substance into Peripheral Vein, Percutaneous Approach (ICD-10-PCS; principal; 2020-01-04)
DX: F10.10 Alcohol abuse, uncomplicated (principal); E87.6 Hypokalemia; I10 Essential (primary) hypertension; Z85.46 Personal history of malignant neoplasm of prostate; Z87.891 Personal history of nicotine dependence; K21.9 Gastro-esophageal reflux disease without esophagitis
CPT/HCPCS: 36415; 71046-TC-FY; 80053; 80162; 82550; 82553; 83690; 83735; 84100; 84443; 84484; 85025; 85730; 93005; 93010; 99285-25

== ENCOUNTER 2021-08-19 17:51 | Inpatient (IN) | payer OTHER, MEDICARE ==
[2021-08-19] MEDS ORDERED: SODIUM CHLORIDE 0.9% 1000 ML INFUS.BAG IV ONE (18:31)
[2021-08-19] MEDS ORDERED: MAG HYDROX/AL HYDROX/SIMETH -MYLANTA- ORAL SUSPENSION PO ONE (18:31)
[2021-08-19] MEDS ORDERED: ACETAMINOPHEN 1000 MG/100 ML VIAL IVPB ONE (18:31)
[2021-08-19] MEDS ORDERED: ONDANSETRON 4 MG/2 ML VIAL IVPUSH ONE ×2 (18:31→19:48)
[2021-08-19] MEDS ORDERED: FAMOTIDINE 20 MG/50 ML IVPB 20 MG/50 ML MG IVPB ONE ×2 (18:31→18:42)
[2021-08-19] MEDS ORDERED: ONDANSETRON 4 MG/2 ML VIAL ONE ×2 (18:42→20:01)
[2021-08-19] MEDS ORDERED: ACETAMINOPHEN INJECTION 100 ML IVPB ONE (18:42)
[2021-08-19] MEDS ORDERED: MAG HYDROX/AL HYDROX/SIMETH 30 ML UNIT-DOSE CUP ONE (18:42)
[2021-08-19 18:52] LABS: BASO % 0.6 % (0-2.0); EOS % 0.1 % (0-4.5); HEMATOCRIT 41.7 % (35.4-49); HEMOGLOBIN 14.8 GM/dL (11.7-16.9); LYMPH % 8.7 % (8-40); MCH 34.5 pg (25.7-33.7); MCHC 35.6 g/dl (32.0-35.9); MEAN CELL VOLUME 96.9 fl (80-96); MEAN PLT VOLUME 6.1 fl (7.5-11.1); NEUT % 82.6 % (42.8-82.8); PLATELET COUNT 250 10^3/uL (134-434); RBC 4.31 M/mm3 (4.00-5.60); RDW 12.9 % (11.9-15.9)
[2021-08-19 19:00] LABS: INR 0.94 (0.83-1.09); PROTHROMBIN TIME (PATIENT) 11.4 SEC (9.7-13.0)
[2021-08-19 19:02] LABS: ACTIVATED PTT 25.2 SECONDS (25.2-36.5)
[2021-08-19 19:14] LABS: CHLORIDE 105 mmol/L (98-107); SODIUM 140 mmol/L (136-145)
[2021-08-19 19:16] LABS: ANION GAP 11 MMOL/L (8-16); CALCIUM 8.9 mg/dL (8.5-10.1); CO2 24 mmol/L (21-32)
[2021-08-19 19:17] LABS: ALBUMIN 3.9 g/dl (3.4-5.0); LIPASE 138 U/L (73-393)
[2021-08-19 19:19] LABS: CREATININE 0.6 mg/dL (0.55-1.3); SGOT/AST 93 U/L (15-37); SGPT/ALT 38 U/L (13-61)
[2021-08-19 19:21] LABS: BILIRUBIN,TOTAL 1.4 mg/dL (0.2-1); LACTIC ACID 2.6 mmol/L (0.4-2.0); TOT PROT 8.4 g/dl (6.4-8.2)
[2021-08-19 19:22] LABS: ALK PHOS 93 U/L (45-117)
[2021-08-19 19:29] LABS: GLUCOSE,RANDOM 125 mg/dL (74-106)
[2021-08-19] MEDS ORDERED: MAGNESIUM SULF 50% (8.12 MEQ/2 ML-1 GM VIAL) IVPB ONE (19:47)
[2021-08-19] MEDS ORDERED: MAGNESIUM 1GM/D5W - 1 GM/100 ML IVPB IVPB ONE (20:50)
[2021-08-19] MEDS ORDERED: SUCRALFATE 1 GM/10 ML UNIT DOSE CUPS PO ONE (21:16)
[2021-08-19 21:49] LABS: PH,URINE 5.5 (5.0-8.0); URINE APPEARANCE Clear; URINE BILIRUBIN Negative (NEGATIVE); URINE COLOR Yellow; URINE GLUCOSE (UA) Negative (NEGATIVE); URINE KETONE 15 mg/dl (NEGATIVE); URINE LEUK ESTERASE Negative (NEGATIVE); URINE NITRITE Negative (NEGATIVE); URINE PROTEIN Negative (NEGATIVE)
[2021-08-19] MEDS ORDERED: SUCRALFATE 1 GM TABLET (FP) ONE (22:20)
[2021-08-19] MEDS ORDERED: SUCRALFATE 1 GM TABLET (FP) PO ONE (22:21)
[2021-08-19 23:22] LABS: LACTIC ACID 2.2 mmol/L (0.4-2.0)
[2021-08-20] MEDS ORDERED: ACETAMINOPHEN 325 MG TABLET (FP) PO PRN (01:42)
[2021-08-20] MEDS ORDERED: SODIUM CHLORIDE 1,000 ML IV SCH (01:45)
[2021-08-20] MEDS ORDERED: ONDANSETRON 4 MG/2 ML VIAL IVPUSH PRN (01:48)
[2021-08-20] MEDS ORDERED: FOLIC ACID INJECTION - 1 MG, THIAMINE HCL 100 MG, MULTIVIT INJECTION ADULT 10 ML in SOD... IVPB ONE (02:03)
[2021-08-20] MEDS ORDERED: LORazepam 1 MG TABLET PO PRN (02:04)
[2021-08-20] MEDS ORDERED: MAG HYDROX/AL HYDROX/SIMETH 30 ML UNIT-DOSE CUP PO PRN (02:05)
[2021-08-20] MEDS ORDERED: MAGNESIUM SULF 50% (8.12 MEQ/2 ML-1 GM VIAL) IVPB ONE ×2 (02:06→09:48)
[2021-08-20] MEDS ORDERED: MAGNESIUM 1GM/D5W - 1 GM/100 ML IVPB IVPB ONE (02:09)
[2021-08-20] MEDS ORDERED: LORazepam 1 MG TABLET ONE (04:46)
[2021-08-20] MEDS: LORazepam 1 MG TABLET PO SCH ×4 (04:50→22:18)
[2021-08-20 08:52] LABS: HEMATOCRIT 38.5 % (35.4-49); HEMOGLOBIN 13.3 GM/dL (11.7-16.9); MCH 33.7 pg (25.7-33.7); MCHC 34.6 g/dl (32.0-35.9); MEAN CELL VOLUME 97.3 fl (80-96); MEAN PLT VOLUME 6.2 fl (7.5-11.1); PLATELET COUNT 206 10^3/uL (134-434); RBC 3.96 M/mm3 (4.00-5.60); RDW 12.9 % (11.9-15.9); WHITE BLOOD COUNT 10.9 K/mm3 (4.0-10.0)
[2021-08-20 09:14] LABS: CALCIUM 8.2 mg/dL (8.5-10.1)
[2021-08-20 09:15] LABS: ALBUMIN 3.2 g/dl (3.4-5.0); BLOOD UREA NITROGEN 8.5 mg/dL (7-18); MAGNESIUM 1.6 mg/dL (1.8-2.4)
[2021-08-20 09:18] LABS: CREATININE 0.5 mg/dL (0.55-1.3); PHOSPHOROUS 2.6 mg/dL (2.5-4.9)
[2021-08-20 09:20] LABS: BILIRUBIN,TOTAL 2.5 mg/dL (0.2-1); TOT PROT 7.2 g/dl (6.4-8.2)
[2021-08-20] MEDS ORDERED: MAGNESIUM OXIDE 400 MG TABLET (FP) PO ONE (09:48)
[2021-08-20] MEDS ORDERED: FLU VACC QS2021-22(6MOS UP)/PF 60 MCG/0.5 ML SYRINGE IM ONE (10:00)
[2021-08-20 10:21] LABS: BILIRUBIN,DIRECT 0.6 mg/dL (0.0-0.2)
[2021-08-20] MEDS: FOLIC ACID 1 MG TABLET (FP) PO SCH (10:51)
[2021-08-20] MEDS: amLODIPine BESYLATE 5 MG TABLET (FP) PO SCH (10:51)
[2021-08-20] MEDS: THIAMINE HCL 100 MG TABLET (FP) PO SCH (10:51)
[2021-08-20] MEDS: PANTOPRAZOLE SODIUM 40 MG VIAL IVPUSH SCH (10:51)
[2021-08-20] MEDS: ENOXAPARIN NA (PORCINE) 40 MG/0.4 ML DISP.SYRIN SQ SCH (10:52)
[2021-08-20] MEDS ORDERED: SUCRALFATE 1 GM TABLET (FP) PO ONE (22:21)
[2021-08-20] MEDS ORDERED: FUROSEMIDE 40 MG/4 ML INJECTABLE VIAL IVPUSH ONE (23:23)
[2021-08-21] MEDS ORDERED: LORazepam 2 MG/ML SDV VIAL IVPUSH ONE (03:05)
[2021-08-21] MEDS: LORazepam 1 MG TABLET PO SCH ×4 (06:44→23:45)
[2021-08-21 08:43] LABS: BASO % 0.2 % (0-2.0); HEMATOCRIT 39.7 % (35.4-49); LYMPH % 4.6 % (8-40); MCH 34.5 pg (25.7-33.7); MCHC 35.2 g/dl (32.0-35.9); MEAN PLT VOLUME 7.5 fl (7.5-11.1); MONO % 9.9 % (3.8-10.2); NEUT % 85.3 % (42.8-82.8); PLATELET COUNT 228 10^3/uL (134-434); RBC 4.05 M/mm3 (4.00-5.60); RDW 12.9 % (11.9-15.9); WHITE BLOOD COUNT 16.9 K/mm3 (4.0-10.0)
[2021-08-21] MEDS ORDERED: morphine SULFATE 4 MG/ML VIAL IVPUSH PRN (09:08)
[2021-08-21 09:12] LABS: CALCIUM 7.9 mg/dL (8.5-10.1)
[2021-08-21 09:13] LABS: MAGNESIUM 1.7 mg/dL (1.8-2.4)
[2021-08-21 09:16] LABS: CREATININE 0.6 mg/dL (0.55-1.3); PHOSPHOROUS 2.5 mg/dL (2.5-4.9)
[2021-08-21 09:17] LABS: BILIRUBIN,TOTAL 2.4 mg/dL (0.2-1)
[2021-08-21 09:18] LABS: TOT PROT 7.1 g/dl (6.4-8.2)
[2021-08-21] MEDS ORDERED: MAGNESIUM SULF 50% (8.12 MEQ/2 ML-1 GM VIAL) IVPB ONE (09:30)
[2021-08-21] MEDS ORDERED: PIPERACILLIN/TAZOB 3.375 GM 3.375 GM in DEXTROSE 5%-WATER - 50 ML IVPB ONE (09:30)
[2021-08-21] MEDS ORDERED: PIPERACILLIN/TAZOBACTAM 3.375 GM VIAL IVPB ONE ×2 (09:40→17:49)
[2021-08-21] MEDS ORDERED: DEXTROSE 5%-WATER - 50 ML IVPB ONE ×2 (09:40→17:49)
[2021-08-21] MEDS: SODIUM CHLORIDE 1,000 ML IV SCH (09:59)
[2021-08-21] MEDS: PANTOPRAZOLE SODIUM 40 MG VIAL IVPUSH SCH (10:00)
[2021-08-21] MEDS: FOLIC ACID 1 MG TABLET (FP) PO SCH (10:12)
[2021-08-21] MEDS: amLODIPine BESYLATE 5 MG TABLET (FP) PO SCH (10:12)
[2021-08-21] MEDS: THIAMINE HCL 100 MG TABLET (FP) PO SCH (10:12)
[2021-08-21] MEDS: KCL 10 MEQ IVPB 10 MEQ/100 ML INFUS.BAG IVPB SCH ×2 (11:09→12:11)
[2021-08-21] MEDS: PIPERACILLIN/TAZOB 3.375 GM 3.375 GM in DEXTROSE 5%-WATER - 50 ML IVPB SCH (17:53)
[2021-08-21] MEDS: LORazepam 2 MG/ML SDV VIAL IVPUSH PRN ×2 (18:14→23:45)
[2021-08-22] MEDS ORDERED: LORazepam 0.5 MG TABLET PO PRN
[2021-08-22] MEDS ORDERED: PIPERACILLIN/TAZOBACTAM 3.375 GM VIAL IVPB ONE ×2 (01:32→09:12)
[2021-08-22] MEDS ORDERED: DEXTROSE 5%-WATER - 50 ML IVPB ONE ×2 (01:32→09:13)
[2021-08-22] MEDS: PIPERACILLIN/TAZOB 3.375 GM 3.375 GM in DEXTROSE 5%-WATER - 50 ML IVPB SCH ×3 (01:47→18:48)
[2021-08-22] MEDS: LORazepam 0.5 MG TABLET PO SCH ×4 (06:06→23:46)
[2021-08-22] MEDS: SODIUM CHLORIDE 1,000 ML IV SCH ×3 (06:22→18:43)
[2021-08-22 08:56] LABS: BASO % 0.3 % (0-2.0); HEMATOCRIT 40.3 % (35.4-49); LYMPH % 5.9 % (8-40); MCH 34.5 pg (25.7-33.7); MCHC 34.8 g/dl (32.0-35.9); MEAN CELL VOLUME 99.2 fl (80-96); MEAN PLT VOLUME 7.2 fl (7.5-11.1); MONO % 9.7 % (3.8-10.2); NEUT % 84.1 % (42.8-82.8); PLATELET COUNT 219 10^3/uL (134-434); RBC 4.06 M/mm3 (4.00-5.60); RDW 12.8 % (11.9-15.9); WHITE BLOOD COUNT 16.4 K/mm3 (4.0-10.0)
[2021-08-22] MEDS: LORazepam 2 MG/ML SDV VIAL IVPUSH PRN ×3 (09:19→18:21)
[2021-08-22] MEDS: PANTOPRAZOLE SODIUM 40 MG VIAL IVPUSH SCH (09:20)
[2021-08-22] MEDS: amLODIPine BESYLATE 5 MG TABLET (FP) PO SCH (09:24)
[2021-08-22] MEDS: THIAMINE HCL 100 MG TABLET (FP) PO SCH (09:24)
[2021-08-22] MEDS: FOLIC ACID 1 MG TABLET (FP) PO SCH (09:24)
[2021-08-22 09:39] LABS: CALCIUM 7.8 mg/dL (8.5-10.1)
[2021-08-22 09:40] LABS: ALBUMIN 2.8 g/dl (3.4-5.0); MAGNESIUM 2.4 mg/dL (1.8-2.4)
[2021-08-22 09:41] LABS: BLOOD UREA NITROGEN 19.8 mg/dL (7-18)
[2021-08-22 09:43] LABS: CREATININE 0.6 mg/dL (0.55-1.3); PHOSPHOROUS 2.2 mg/dL (2.5-4.9)
[2021-08-22 09:44] LABS: BILIRUBIN,TOTAL 2.6 mg/dL (0.2-1)
[2021-08-22] MEDS: ENOXAPARIN NA (PORCINE) 40 MG/0.4 ML DISP.SYRIN SQ SCH (10:53)
[2021-08-22] MEDS ORDERED: MIDAZOLAM HCL 2 MG/2 ML SINGLE DOSE VIAL IVPUSH ONE (15:35)
[2021-08-22] MEDS ORDERED: SODIUM CHLORIDE 500 ML IV ONE (15:35)
[2021-08-22 18:00] LABS: ARTERIAL BLD GAS O2 SATURATION 72.3 % (95-98); ARTERIAL BLOOD GAS BASE EXCESS -0.9 mmol/L (-2-2); ARTERIAL BLOOD GAS PO2 40.5 mmHg (80-100); ARTERIAL BLOOD GAS pH 7.342 (7.350-7.450)
[2021-08-22 18:05] LABS: ALLENS TEST POSITIVE
[2021-08-22] MEDS ORDERED: HALOPERIDOL LACTATE 5 MG/ML IM ONE ×2 (18:20→18:23)
[2021-08-22] MEDS ORDERED: LORazepam 2 MG/ML SDV VIAL IVPUSH ONE ×2 (18:23→18:28)
[2021-08-22 20:54] LABS: HEMATOCRIT 34.9 % (35.4-49); HEMOGLOBIN 12.3 GM/dL (11.7-16.9); MCH 34.1 pg (25.7-33.7); MCHC 35.1 g/dl (32.0-35.9); MEAN CELL VOLUME 96.9 fl (80-96); PLATELET COUNT 191 10^3/uL (134-434); RDW 12.9 % (11.9-15.9); WHITE BLOOD COUNT 8.8 K/mm3 (4.0-10.0)
[2021-08-22 21:17] LABS: CHLORIDE 104 mmol/L (98-107); SODIUM 137 mmol/L (136-145)
[2021-08-22 21:20] LABS: CALCIUM 7.5 mg/dL (8.5-10.1); CO2 25 mmol/L (21-32)
[2021-08-22 21:21] LABS: ALBUMIN 2.3 g/dl (3.4-5.0)
[2021-08-22 21:22] LABS: GLUCOSE,RANDOM 90 mg/dL (74-106)
[2021-08-22 21:24] LABS: CREATININE 0.5 mg/dL (0.55-1.3); SGOT/AST 80 U/L (15-37); SGPT/ALT 29 U/L (13-61)
[2021-08-22 21:25] LABS: BILIRUBIN,TOTAL 2.3 mg/dL (0.2-1); TOT PROT 5.7 g/dl (6.4-8.2)
[2021-08-22 21:29] LABS: BLOOD UREA NITROGEN 19.5 mg/dL (7-18)
[2021-08-22 21:44] LABS: ALK PHOS 89 U/L (45-117); ANION GAP 9 MMOL/L (8-16)
[2021-08-22 22:03] LABS: PLATELET ESTIMATE ADEQUATE; TARGET CELLS 1+
[2021-08-22] MEDS ORDERED: POTASSIUM CHLORIDE TABS 20 MEQ TABLET.ER (FP) PO ONE (22:36)
[2021-08-22] MEDS: KCL 10 MEQ IVPB 10 MEQ/100 ML INFUS.BAG IVPB SCH ×4 (22:52→23:57)
[2021-08-22 23:16] LABS: MAGNESIUM 2.3 mg/dL (1.8-2.4)
[2021-08-23] MEDS ORDERED: PIPERACILLIN/TAZOBACTAM 3.375 GM VIAL IVPB ONE ×3 (01:18→16:22)
[2021-08-23] MEDS ORDERED: DEXTROSE 5%-WATER - 50 ML IVPB ONE ×3 (01:18→16:22)
[2021-08-23] MEDS: KCL 10 MEQ IVPB 10 MEQ/100 ML INFUS.BAG IVPB SCH ×8 (01:20→12:00)
[2021-08-23] MEDS: PIPERACILLIN/TAZOB 3.375 GM 3.375 GM in DEXTROSE 5%-WATER - 50 ML IVPB SCH ×3 (02:00→18:52)
[2021-08-23] MEDS: LORazepam 2 MG/ML SDV VIAL IVPUSH PRN ×2 (02:25→06:50)
[2021-08-23] MEDS ORDERED: LORazepam 0.5 MG TABLET PO ONE (05:00)
[2021-08-23 06:52] LABS: BASO % 0.3 % (0-2.0); EOS % 0.1 % (0-4.5); HEMATOCRIT 36.4 % (35.4-49); HEMOGLOBIN 12.8 GM/dL (11.7-16.9); LYMPH % 9.4 % (8-40); MCHC 35.3 g/dl (32.0-35.9); MEAN CELL VOLUME 99.2 fl (80-96); MEAN PLT VOLUME 7.3 fl (7.5-11.1); MONO % 17.6 % (3.8-10.2); NEUT % 72.6 % (42.8-82.8); PLATELET COUNT 212 10^3/uL (134-434); RBC 3.67 M/mm3 (4.00-5.60); RDW 12.9 % (11.9-15.9); WHITE BLOOD COUNT 9.1 K/mm3 (4.0-10.0)
[2021-08-23 07:38] LABS: ALBUMIN 2.4 g/dl (3.4-5.0); CALCIUM 7.3 mg/dL (8.5-10.1)
[2021-08-23 07:39] LABS: BLOOD UREA NITROGEN 16.7 mg/dL (7-18); MAGNESIUM 2.3 mg/dL (1.8-2.4)
[2021-08-23 07:42] LABS: CREATININE 0.5 mg/dL (0.55-1.3)
[2021-08-23 07:43] LABS: BILIRUBIN,TOTAL 2.5 mg/dL (0.2-1)
[2021-08-23] MEDS ORDERED: ONDANSETRON 4 MG/2 ML VIAL IVPUSH PRN (08:42)
[2021-08-23] MEDS ORDERED: ACETAMINOPHEN 325 MG TABLET (FP) PO PRN (08:42)
[2021-08-23] MEDS ORDERED: LORazepam 2 MG/ML SDV VIAL IVPUSH PRN (08:42)
[2021-08-23] MEDS ORDERED: MAG HYDROX/AL HYDROX/SIMETH 30 ML UNIT-DOSE CUP PO PRN (08:42)
[2021-08-23] MEDS: SODIUM CHLORIDE 1,000 ML IV SCH (08:58)
[2021-08-23] MEDS: FOLIC ACID 1 MG TABLET (FP) PO SCH (09:20)
[2021-08-23] MEDS: THIAMINE HCL 100 MG TABLET (FP) PO SCH (09:20)
[2021-08-23] MEDS: PANTOPRAZOLE SODIUM 40 MG VIAL IVPUSH SCH (09:20)
[2021-08-23] MEDS: amLODIPine BESYLATE 5 MG TABLET (FP) PO SCH (09:32)
[2021-08-23] MEDS: NAPH,MB-DB/K PH,MBDB POWDER PACKET PO SCH ×2 (09:32→21:31)
[2021-08-23] MEDS: ENOXAPARIN NA (PORCINE) 40 MG/0.4 ML DISP.SYRIN SQ SCH (09:34)
[2021-08-23] MEDS: ALBUTEROL SO4 2.5/IPRATROPIUM 0.5 INH SOL 3 ML VIAL.NEB. NEB SCH ×2 (15:16→20:24)
[2021-08-23] MEDS: morphine SULFATE 4 MG/ML VIAL IVPUSH PRN (23:52)
[2021-08-24] MEDS ORDERED: DEXTROSE 5%-WATER - 50 ML IVPB ONE ×3 (01:09→16:41)
[2021-08-24] MEDS ORDERED: PIPERACILLIN/TAZOBACTAM 3.375 GM VIAL IVPB ONE ×3 (01:09→16:41)
[2021-08-24] MEDS ORDERED: LORazepam 2 MG/ML SDV VIAL IVPUSH ONE (01:16)
[2021-08-24] MEDS: PIPERACILLIN/TAZOB 3.375 GM 3.375 GM in DEXTROSE 5%-WATER - 50 ML IVPB SCH ×3 (01:21→18:07)
[2021-08-24] MEDS: ALBUTEROL SO4 2.5/IPRATROPIUM 0.5 INH SOL 3 ML VIAL.NEB. NEB SCH ×4 (07:25→20:24)
[2021-08-24 07:33] LABS: CALCIUM 7.6 mg/dL (8.5-10.1)
[2021-08-24 07:34] LABS: ALBUMIN 2.4 g/dl (3.4-5.0)
[2021-08-24 07:36] LABS: BLOOD UREA NITROGEN 10.9 mg/dL (7-18)
[2021-08-24 07:37] LABS: CREATININE 0.5 mg/dL (0.55-1.3)
[2021-08-24 07:38] LABS: BILIRUBIN,TOTAL 1.9 mg/dL (0.2-1); PHOSPHOROUS 2.3 mg/dL (2.5-4.9); TOT PROT 6.4 g/dl (6.4-8.2)
[2021-08-24 08:00] LABS: HEMATOCRIT 40.2 % (35.4-49); HEMOGLOBIN 13.6 GM/dL (11.7-16.9); MCH 33.9 pg (25.7-33.7); MEAN CELL VOLUME 99.9 fl (80-96); PLATELET COUNT 268 10^3/uL (134-434); RBC 4.02 M/mm3 (4.00-5.60); RDW 13.3 % (11.9-15.9); WHITE BLOOD COUNT 8.6 K/mm3 (4.0-10.0)
[2021-08-24] MEDS ORDERED: ACETAMINOPHEN 325 MG TABLET (FP) PO PRN (08:05)
[2021-08-24] MEDS: SODIUM CHLORIDE 1,000 ML IV SCH ×2 (08:30→18:00)
[2021-08-24] MEDS ORDERED: PT OWN MED DRAWER 7, Y5N ONE (08:47)
[2021-08-24 09:08] LABS: ANISOCYTOSIS 0; MACROCYTOSIS 0; PLATELET ESTIMATE NORMAL; TEAR DROP CELLS 1+
[2021-08-24] MEDS: PANTOPRAZOLE SODIUM 40 MG VIAL IVPUSH SCH (10:26)
[2021-08-24] MEDS: ENOXAPARIN NA (PORCINE) 40 MG/0.4 ML DISP.SYRIN SQ SCH (10:27)
[2021-08-24] MEDS: NAPH,MB-DB/K PH,MBDB POWDER PACKET PO SCH ×2 (10:36→23:10)
[2021-08-24] MEDS: THIAMINE HCL 100 MG TABLET (FP) PO SCH (10:36)
[2021-08-24] MEDS: amLODIPine BESYLATE 5 MG TABLET (FP) PO SCH (10:38)
[2021-08-24] MEDS: FOLIC ACID 1 MG TABLET (FP) PO SCH (10:41)
[2021-08-24] MEDS ORDERED: POTASSIUM CHLORIDE TABS 20 MEQ TABLET.ER (FP) PO ONE (11:36)
[2021-08-24] MEDS: HALOPERIDOL LACTATE 5 MG/ML IM PRN (20:17)
[2021-08-24] MEDS: LORazepam 2 MG/ML SDV VIAL IVPUSH PRN (21:03)
[2021-08-24] MEDS ORDERED: ACETAMINOPHEN 1000 MG/100 ML VIAL IVPB PRN (22:22)
[2021-08-24] MEDS ORDERED: ACETAMINOPHEN INJECTION 100 ML IVPB ONE (22:27)
[2021-08-25] MEDS ORDERED: PIPERACILLIN/TAZOBACTAM 3.375 GM VIAL IVPB ONE ×4 (01:27→23:51)
[2021-08-25] MEDS ORDERED: DEXTROSE 5%-WATER - 50 ML IVPB ONE ×4 (01:27→23:51)
[2021-08-25] MEDS: PIPERACILLIN/TAZOB 3.375 GM 3.375 GM in DEXTROSE 5%-WATER - 50 ML IVPB SCH ×3 (01:31→17:21)
[2021-08-25] MEDS: LORazepam 2 MG/ML SDV VIAL IVPUSH PRN (05:40)
[2021-08-25 06:46] LABS: HEMATOCRIT 38.7 % (35.4-49); HEMOGLOBIN 13.6 GM/dL (11.7-16.9); MCH 34.7 pg (25.7-33.7); MCHC 35.3 g/dl (32.0-35.9); MEAN CELL VOLUME 98.4 fl (80-96); PLATELET COUNT 280 10^3/uL (134-434); RBC 3.93 M/mm3 (4.00-5.60); RDW 12.8 % (11.9-15.9); WHITE BLOOD COUNT 6.2 K/mm3 (4.0-10.0)
[2021-08-25 07:17] LABS: ALBUMIN 2.3 g/dl (3.4-5.0); BLOOD UREA NITROGEN 4.8 mg/dL (7-18); CALCIUM 7.3 mg/dL (8.5-10.1); MAGNESIUM 1.5 mg/dL (1.8-2.4)
[2021-08-25 07:18] LABS: BILIRUBIN,TOTAL 1.5 mg/dL (0.2-1); TOT PROT 6.1 g/dl (6.4-8.2)
[2021-08-25 07:20] LABS: CREATININE 0.4 mg/dL (0.55-1.3); PHOSPHOROUS 1.6 mg/dL (2.5-4.9)
[2021-08-25] MEDS: ALBUTEROL SO4 2.5/IPRATROPIUM 0.5 INH SOL 3 ML VIAL.NEB. NEB SCH ×4 (07:25→20:34)
[2021-08-25] MEDS ORDERED: MAGNESIUM 2GM/50ML STERILE WATER IVPB IVPB ONE (08:15)
[2021-08-25] MEDS: PANTOPRAZOLE SODIUM 40 MG VIAL IVPUSH SCH (09:33)
[2021-08-25] MEDS: THIAMINE HCL 100 MG TABLET (FP) PO SCH ×2 (09:33→10:14)
[2021-08-25] MEDS: POTASSIUM CHLORIDE TABS 20 MEQ TABLET.ER (FP) PO ONE ×2 (09:33→10:15)
[2021-08-25] MEDS: amLODIPine BESYLATE 5 MG TABLET (FP) PO SCH ×3 (09:33→15:00)
[2021-08-25] MEDS: FOLIC ACID 1 MG TABLET (FP) PO SCH ×2 (09:33→10:13)
[2021-08-25] MEDS: ENOXAPARIN NA (PORCINE) 40 MG/0.4 ML DISP.SYRIN SQ SCH (09:34)
[2021-08-25 10:12] LABS: ANISOCYTOSIS 0; HELMET CELLS 0; HOWELL-JOLLY BODIES 0; MACROCYTOSIS 0; OVALOCYTE 0; PLATELET ESTIMATE NORMAL; ROULEAU 0; SICKELED CELLS 0; TARGET CELLS 0; TEAR DROP CELLS 0; TOXIC GRANULATION 0
[2021-08-25] MEDS ORDERED: POTASSIUM CHLORIDE 20 MEQ PREMIX IVPB 100 ML IVPB ONE (11:23)
[2021-08-25] MEDS ORDERED: SODIUM CHLORIDE 1,000 ML IV SCH (11:23)
[2021-08-25] MEDS ORDERED: POTASSIUM PHOSPHATE 30 MM in AMINO ACIDS 4.25%/D5W 1,000 ML IVPB SCH ×2 (11:45→13:00)
[2021-08-25] MEDS ORDERED: AMINO ACIDS 4.25%/D5W 1,000 ML IV SCH (11:45)
[2021-08-25] MEDS: KCL 10 MEQ IVPB 10 MEQ/100 ML INFUS.BAG IVPB SCH ×2 (12:41→14:27)
[2021-08-25] MEDS: NAPH,MB-DB/K PH,MBDB POWDER PACKET PO SCH ×2 (14:28→21:27)
[2021-08-25] MEDS: HALOPERIDOL LACTATE 5 MG/ML IM PRN (20:05)
[2021-08-26] MEDS: morphine SULFATE 4 MG/ML VIAL IVPUSH PRN (00:43)
[2021-08-26] MEDS ORDERED: POTASSIUM CHLORIDE 40 MEQ in AMINO ACIDS 4.25%/D5W 1,000 ML IV SCH (01:00)
[2021-08-26] MEDS: PIPERACILLIN/TAZOB 3.375 GM 3.375 GM in DEXTROSE 5%-WATER - 50 ML IVPB SCH (01:08)
[2021-08-26] MEDS: NAPH,MB-DB/K PH,MBDB POWDER PACKET PO SCH (05:13)
[2021-08-26] MEDS: ALBUTEROL SO4 2.5/IPRATROPIUM 0.5 INH SOL 3 ML VIAL.NEB. NEB SCH ×4 (07:25→20:28)
[2021-08-26 07:44] LABS: HEMATOCRIT 33.5 % (35.4-49); HEMOGLOBIN 12.1 GM/dL (11.7-16.9); MCH 34.7 pg (25.7-33.7); MCHC 36.1 g/dl (32.0-35.9); MEAN CELL VOLUME 96.1 fl (80-96); MEAN PLT VOLUME 6.9 fl (7.5-11.1); PLATELET COUNT 300 10^3/uL (134-434); RBC 3.48 M/mm3 (4.00-5.60); RDW 13.1 % (11.9-15.9); WHITE BLOOD COUNT 7.4 K/mm3 (4.0-10.0)
[2021-08-26 07:46] LABS: CHLORIDE 104 mmol/L (98-107); SODIUM 138 mmol/L (136-145)
[2021-08-26 07:53] LABS: ALBUMIN 1.9 g/dl (3.4-5.0); ANION GAP 8 MMOL/L (8-16); BLOOD UREA NITROGEN 7.3 mg/dL (7-18); CO2 25 mmol/L (21-32); GLUCOSE,RANDOM 132 mg/dL (74-106); MAGNESIUM 1.6 mg/dL (1.8-2.4)
[2021-08-26 07:55] LABS: SGPT/ALT 23 U/L (13-61)
[2021-08-26 07:57] LABS: CREATININE 0.5 mg/dL (0.55-1.3); SGOT/AST 51 U/L (15-37); TOT PROT 5.4 g/dl (6.4-8.2)
[2021-08-26 07:58] LABS: ALK PHOS 100 U/L (45-117)
[2021-08-26 08:00] LABS: CALCIUM 6.9 mg/dL (8.5-10.1)
[2021-08-26] MEDS ORDERED: POTASSIUM CHLORIDE TABS 20 MEQ TABLET.ER (FP) PO ONE ×2 (08:13→13:02)
[2021-08-26] MEDS ORDERED: MAGNESIUM SULF 50% (8.12 MEQ/2 ML-1 GM VIAL) IVPB ONE (08:30)
[2021-08-26] MEDS ORDERED: DEXTROSE 5%-WATER 100 ML IVPB ONE (09:04)
[2021-08-26] MEDS: ENOXAPARIN NA (PORCINE) 40 MG/0.4 ML DISP.SYRIN SQ SCH (09:41)
[2021-08-26] MEDS: amLODIPine BESYLATE 5 MG TABLET (FP) PO SCH (09:41)
[2021-08-26] MEDS: PANTOPRAZOLE SODIUM 40 MG VIAL IVPUSH SCH (09:41)
[2021-08-26] MEDS: CEFTRIAXONE 2 GM in DEXTROSE 5%-WATER 100 ML IVPB SCH (09:42)
[2021-08-26] MEDS: THIAMINE HCL 100 MG TABLET (FP) PO SCH (09:42)
[2021-08-26] MEDS: FOLIC ACID 1 MG TABLET (FP) PO SCH (09:43)
[2021-08-26 10:53] LABS: ANISOCYTOSIS 0; HELMET CELLS 0; HOWELL-JOLLY BODIES 0; MACROCYTOSIS 0; OVALOCYTE 0; PLATELET ESTIMATE NORMAL; ROULEAU 0; SICKELED CELLS 0; TARGET CELLS 0; TEAR DROP CELLS 0; TOXIC GRANULATION 0
[2021-08-27 07:17] LABS: BASO % 0.2 % (0-2.0); EOS % 1.4 % (0-4.5); HEMOGLOBIN 12.9 GM/dL (11.7-16.9); LYMPH % 11.3 % (8-40); MCH 34.7 pg (25.7-33.7); MCHC 35.7 g/dl (32.0-35.9); MEAN PLT VOLUME 7.1 fl (7.5-11.1); MONO % 17.5 % (3.8-10.2); NEUT % 69.6 % (42.8-82.8); PLATELET COUNT 434 10^3/uL (134-434); RBC 3.71 M/mm3 (4.00-5.60); RDW 13.3 % (11.9-15.9); WHITE BLOOD COUNT 8.1 K/mm3 (4.0-10.0)
[2021-08-27 07:37] LABS: BLOOD UREA NITROGEN 7.2 mg/dL (7-18); CALCIUM 7.6 mg/dL (8.5-10.1); MAGNESIUM 1.7 mg/dL (1.8-2.4)
[2021-08-27 07:40] LABS: CREATININE 0.6 mg/dL (0.55-1.3); PHOSPHOROUS 3.1 mg/dL (2.5-4.9)
[2021-08-27 07:41] LABS: TOT PROT 6.4 g/dl (6.4-8.2)
[2021-08-27 07:45] LABS: ALBUMIN 2.4 g/dl (3.4-5.0)
[2021-08-27] MEDS: ALBUTEROL SO4 2.5/IPRATROPIUM 0.5 INH SOL 3 ML VIAL.NEB. NEB SCH ×4 (08:03→20:30)
[2021-08-27] MEDS ORDERED: MAGNESIUM SULF 50% (8.12 MEQ/2 ML-1 GM VIAL) IVPB ONE (08:22)
[2021-08-27] MEDS ORDERED: POTASSIUM CHLORIDE TABS 20 MEQ TABLET.ER (FP) PO ONE (08:22)
[2021-08-27] MEDS ORDERED: PT OWN MED DRAWER 7, Y5N ONE (09:06)
[2021-08-27] MEDS: amLODIPine BESYLATE 5 MG TABLET (FP) PO SCH (09:24)
[2021-08-27] MEDS: THIAMINE HCL 100 MG TABLET (FP) PO SCH (09:24)
[2021-08-27] MEDS: ENOXAPARIN NA (PORCINE) 40 MG/0.4 ML DISP.SYRIN SQ SCH (09:24)
[2021-08-27] MEDS: FOLIC ACID 1 MG TABLET (FP) PO SCH (09:24)
[2021-08-27] MEDS ORDERED: DEXTROSE 5%-WATER 100 ML IVPB ONE (09:31)
[2021-08-27] MEDS: PANTOPRAZOLE SODIUM 40 MG VIAL IVPUSH SCH (09:33)
[2021-08-27] MEDS ORDERED: MAGNESIUM SULF 50% (8.12 MEQ/2 ML-1 GM VIAL) ONE (09:35)
[2021-08-27] MEDS: CEFTRIAXONE 2 GM in DEXTROSE 5%-WATER 100 ML IVPB SCH (09:37)
[2021-08-27] MEDS ORDERED: DEXTROSE 5%-WATER - 50 ML IVPB ONE ×2 (14:21→17:35)
[2021-08-27] MEDS ORDERED: PIPERACILLIN/TAZOBACTAM 3.375 GM VIAL IVPB ONE ×2 (14:21→17:35)
[2021-08-27] MEDS: PIPERACILLIN/TAZOB 3.375 GM 3.375 GM in DEXTROSE 5%-WATER - 50 ML IVPB SCH ×4 (14:28→18:28)
[2021-08-27 16:22] VITALS: BMI 21.1
[2021-08-27] MEDS ORDERED: FLU VACC QS2021-22(6MOS UP)/PF 60 MCG/0.5 ML SYRINGE IM ONE (18:10)
[2021-08-27] MEDS: ACETAMINOPHEN 325 MG TABLET (FP) PO PRN (21:37)
[2021-08-28] MEDS ORDERED: PIPERACILLIN/TAZOBACTAM 3.375 GM VIAL IVPB ONE ×3 (01:07→16:17)
[2021-08-28] MEDS ORDERED: DEXTROSE 5%-WATER - 50 ML IVPB ONE ×3 (01:08→16:17)
[2021-08-28] MEDS: PIPERACILLIN/TAZOB 3.375 GM 3.375 GM in DEXTROSE 5%-WATER - 50 ML IVPB SCH ×3 (02:02→17:11)
[2021-08-28 06:40] LABS: HEMATOCRIT 35.1 % (35.4-49); HEMOGLOBIN 12.6 GM/dL (11.7-16.9); MCH 35.2 pg (25.7-33.7); MCHC 35.8 g/dl (32.0-35.9); MEAN CELL VOLUME 98.2 fl (80-96); MEAN PLT VOLUME 7.1 fl (7.5-11.1); PLATELET COUNT 506 10^3/uL (134-434); RBC 3.57 M/mm3 (4.00-5.60); RDW 13.6 % (11.9-15.9); WHITE BLOOD COUNT 8.4 K/mm3 (4.0-10.0)
[2021-08-28 07:03] LABS: CALCIUM 8.6 mg/dL (8.5-10.1)
[2021-08-28 07:05] LABS: ALBUMIN 2.4 g/dl (3.4-5.0); BLOOD UREA NITROGEN 6.6 mg/dL (7-18); MAGNESIUM 1.6 mg/dL (1.8-2.4)
[2021-08-28 07:07] LABS: CREATININE 0.7 mg/dL (0.55-1.3); PHOSPHOROUS 3.4 mg/dL (2.5-4.9)
[2021-08-28 07:08] LABS: BILIRUBIN,TOTAL 1.1 mg/dL (0.2-1); TOT PROT 6.5 g/dl (6.4-8.2)
[2021-08-28] MEDS: ALBUTEROL SO4 2.5/IPRATROPIUM 0.5 INH SOL 3 ML VIAL.NEB. NEB SCH ×4 (08:30→20:20)
[2021-08-28] MEDS ORDERED: MAGNESIUM SULF 50% (8.12 MEQ/2 ML-1 GM VIAL) IVPB ONE (09:33)
[2021-08-28] MEDS: amLODIPine BESYLATE 5 MG TABLET (FP) PO SCH (09:51)
[2021-08-28] MEDS: ENOXAPARIN NA (PORCINE) 40 MG/0.4 ML DISP.SYRIN SQ SCH (09:52)
[2021-08-28] MEDS: PANTOPRAZOLE SODIUM 40 MG VIAL IVPUSH SCH (09:52)
[2021-08-28] MEDS: FOLIC ACID 1 MG TABLET (FP) PO SCH (09:52)
[2021-08-28] MEDS: THIAMINE HCL 100 MG TABLET (FP) PO SCH (09:52)
[2021-08-28] MEDS ORDERED: HALOPERIDOL LACTATE 5 MG/ML IM PRN (14:13)
[2021-08-28] MEDS ORDERED: ONDANSETRON 4 MG/2 ML VIAL IVPUSH PRN (14:13)
[2021-08-28] MEDS: ACETAMINOPHEN 325 MG TABLET (FP) PO PRN ×2 (16:35→23:30)
[2021-08-29] MEDS ORDERED: DEXTROSE 5%-WATER - 50 ML IVPB ONE ×3 (00:56→14:44)
[2021-08-29] MEDS ORDERED: PIPERACILLIN/TAZOBACTAM 3.375 GM VIAL IVPB ONE ×3 (00:56→14:44)
[2021-08-29] MEDS: PIPERACILLIN/TAZOB 3.375 GM 3.375 GM in DEXTROSE 5%-WATER - 50 ML IVPB SCH ×3 (01:26→17:09)
[2021-08-29] MEDS: ALBUTEROL SO4 2.5/IPRATROPIUM 0.5 INH SOL 3 ML VIAL.NEB. NEB SCH ×4 (07:50→20:14)
[2021-08-29 08:26] LABS: HEMATOCRIT 34.9 % (35.4-49); HEMOGLOBIN 12.2 GM/dL (11.7-16.9); MCH 34.3 pg (25.7-33.7); MEAN CELL VOLUME 97.9 fl (80-96); MEAN PLT VOLUME 6.7 fl (7.5-11.1); PLATELET COUNT 640 10^3/uL (134-434); RBC 3.57 M/mm3 (4.00-5.60); RDW 13.3 % (11.9-15.9); WHITE BLOOD COUNT 8.6 K/mm3 (4.0-10.0)
[2021-08-29 08:58] LABS: CALCIUM 8.5 mg/dL (8.5-10.1)
[2021-08-29 08:59] LABS: MAGNESIUM 1.7 mg/dL (1.8-2.4)
[2021-08-29 09:02] LABS: CREATININE 0.6 mg/dL (0.55-1.3)
[2021-08-29] MEDS: amLODIPine BESYLATE 5 MG TABLET (FP) PO SCH (09:41)
[2021-08-29] MEDS: THIAMINE HCL 100 MG TABLET (FP) PO SCH (09:41)
[2021-08-29] MEDS: FOLIC ACID 1 MG TABLET (FP) PO SCH (09:41)
[2021-08-29] MEDS: PANTOPRAZOLE SODIUM 40 MG VIAL IVPUSH SCH (09:41)
[2021-08-29] MEDS: ENOXAPARIN NA (PORCINE) 40 MG/0.4 ML DISP.SYRIN SQ SCH (09:42)
[2021-08-29] MEDS ORDERED: MAGNESIUM SULF 50% (8.12 MEQ/2 ML-1 GM VIAL) IVPB ONE ×2 (10:26→14:07)
[2021-08-30] MEDS ORDERED: PIPERACILLIN/TAZOBACTAM 3.375 GM VIAL IVPB ONE ×2 (01:23→08:43)
[2021-08-30] MEDS ORDERED: DEXTROSE 5%-WATER - 50 ML IVPB ONE ×2 (01:23→08:43)
[2021-08-30] MEDS: PIPERACILLIN/TAZOB 3.375 GM 3.375 GM in DEXTROSE 5%-WATER - 50 ML IVPB SCH ×2 (01:37→08:59)
[2021-08-30] MEDS: ALBUTEROL SO4 2.5/IPRATROPIUM 0.5 INH SOL 3 ML VIAL.NEB. NEB SCH ×3 (07:40→16:40)
[2021-08-30 08:00] LABS: HEMATOCRIT 33.9 % (35.4-49); MCH 34.5 pg (25.7-33.7); MCHC 35.3 g/dl (32.0-35.9); MEAN CELL VOLUME 97.8 fl (80-96); MEAN PLT VOLUME 6.3 fl (7.5-11.1); PLATELET COUNT 681 10^3/uL (134-434); RBC 3.47 M/mm3 (4.00-5.60); RDW 13.3 % (11.9-15.9); WHITE BLOOD COUNT 9.6 K/mm3 (4.0-10.0)
[2021-08-30 08:42] LABS: BLOOD UREA NITROGEN 6.3 mg/dL (7-18); CALCIUM 8.5 mg/dL (8.5-10.1); MAGNESIUM 2.1 mg/dL (1.8-2.4)
[2021-08-30 08:45] LABS: CREATININE 0.6 mg/dL (0.55-1.3)
[2021-08-30] MEDS: AMOX TR/POT CLAV 875MG/125MG TABLETS (FP) PO SCH ×2 (08:55→17:11)
[2021-08-30] MEDS: amLODIPine BESYLATE 5 MG TABLET (FP) PO SCH (08:59)
[2021-08-30] MEDS: PANTOPRAZOLE SODIUM 40 MG VIAL IVPUSH SCH (08:59)
[2021-08-30] MEDS: FOLIC ACID 1 MG TABLET (FP) PO SCH (08:59)
[2021-08-30] MEDS: THIAMINE HCL 100 MG TABLET (FP) PO SCH (08:59)
[2021-08-30] MEDS: ENOXAPARIN NA (PORCINE) 40 MG/0.4 ML DISP.SYRIN SQ SCH (09:00)
[2021-08-30] MEDS: ACETAMINOPHEN 325 MG TABLET (FP) PO PRN (12:42)
[2021-08-30 14:24] VITALS: BP 125/66; PULSE 83; TEMP 98.2
== END 2021-08-30 18:32 | disposition home or self-care (01) | DRG 871 ==
LOC: JER 17:51 → JERBED 23:43 → OBSVTOIN 08-20 01:42 → J6S 08-20 05:40 → J2W 08-23 02:33 → J7W 08-28 15:22
PROVIDERS: ADMIT Internal Medicine; ATTEND Internal Medicine
PROC: 0F9430Z Drainage of Gallbladder with Drainage Device, Percutaneous Approach (ICD-10-PCS; principal; 2021-08-22)
DX: A41.59 Other Gram-negative sepsis (principal); G93.41 Metabolic encephalopathy; E87.2 Acidosis; K81.0 Acute cholecystitis; J90 Pleural effusion, not elsewhere classified; J98.11 Atelectasis; F10.231 Alcohol dependence with withdrawal delirium; K21.9 Gastro-esophageal reflux disease without esophagitis; I10 Essential (primary) hypertension; E83.42 Hypomagnesemia; D72.829 Elevated white blood cell count, unspecified; R74.01 Elevation of levels of liver transaminase levels; K76.0 Fatty (change of) liver, not elsewhere classified; E83.39 Other disorders of phosphorus metabolism; F41.9 Anxiety disorder, unspecified; E87.6 Hypokalemia
CPT/HCPCS: 36415; 36600; 47490; 71045-TC-FY; 71275-TC; 74176-TC; 74177-TC; 76705-TC; 80048; 80053; 81003; 82248; 82803; 83036; 83605; 83690; 83735; 84100; 84484; 85025; 85027; 85610; 85730; 86705; 86706; 86708; 86850; 86900; 86901; 87040; 87045; 87046; 87070; 87075; 87086; 87102; 87116; 87186; 87205; 87206; 87210; 87340; 87517; 87522; 90686; 93005; 93010; 94010; 94640; 97116-GP; 97161-GP; 99285-25; C9803; G0008; G0378; J0131; Q9967; U0003; U0005

== ENCOUNTER 2023-10-22 12:41 | Inpatient (IN) | payer OTHER, MEDICARE ==
[2023-10-22] MEDS ORDERED: methylPREDNISolone NA SUCC 125 MG/2 ML VIAL IVPUSH ONE (13:49)
[2023-10-22] MEDS ORDERED: ALBUTEROL SO4 2.5/IPRATROPIUM 0.5 INH SOL 3 ML VIAL.NEB. NEB ONE ×3 (13:49→15:52)
[2023-10-22] MEDS ORDERED: methylPREDNISolone NA SUCC 125 MG/2 ML VIAL ONE (14:38)
[2023-10-22 15:07] LABS: HEMATOCRIT 39.9 % (35.4-49); HEMOGLOBIN 13.9 GM/dL (11.7-16.9); MCH 33.1 pg (25.7-33.7); MCHC 34.8 g/dl (32.0-35.9); MEAN CELL VOLUME 95.1 fl (80-96); MEAN PLT VOLUME 6.3 fl (7.5-11.1); PLATELET COUNT 342 10^3/uL (134-434); RBC 4.19 M/mm3 (4.00-5.60); RDW 12.8 % (11.9-15.9)
[2023-10-22 15:13] LABS: INR 1.03 (0.83-1.09)
[2023-10-22 15:15] LABS: ACTIVATED PTT 29.8 SECONDS (25.2-36.5)
[2023-10-22 15:37] LABS: POTASSIUM 3.8 mmol/L (3.5-5.1)
[2023-10-22 15:41] LABS: ALBUMIN 3.6 g/dl (3.4-5.0); BLOOD UREA NITROGEN 6.7 mg/dL (7-18); CALCIUM 8.7 mg/dL (8.5-10.1)
[2023-10-22 15:44] LABS: CREATININE 0.7 mg/dL (0.55-1.3)
[2023-10-22 15:46] LABS: BILIRUBIN,TOTAL 1.6 mg/dL (0.2-1); TOT PROT 7.5 g/dl (6.4-8.2)
[2023-10-22] MEDS ORDERED: MAGNESIUM SULF 50% (8.12 MEQ/2 ML-1 GM VIAL) IVPB ONE (15:48)
[2023-10-22] MEDS ORDERED: MAGNESIUM SULFATE IN WATER 2 GM/50 ML IVPB IVPB ONE (15:52)
[2023-10-22] MEDS ORDERED: ALBUTEROL SO4 0.083% IH SOL 2.5 MG/3 ML VIAL.NEB. NEB PRN (16:42)
[2023-10-22] MEDS: ALBUTEROL SO4 2.5/IPRATROPIUM 0.5 INH SOL 3 ML VIAL.NEB. NEB SCH ×2 (21:31→23:13)
[2023-10-22] MEDS: GABAPENTIN 400 MG CAPSULE PO SCH (22:14)
[2023-10-22] MEDS: MONTELUKAST NA 10 MG TABLET PO SCH (22:14)
[2023-10-22] MEDS: BUDESONIDE/FORMETEROL FUMARATE 80/4.5 mcg INHALER IH SCH (23:07)
[2023-10-23 00:21] VITALS: BMI 22.1
[2023-10-23] MEDS: BENZOCAINE/MENTH/CETYLPYRD CL 1 EACH LOZENGE MM PRN ×3 (01:41→21:30)
[2023-10-23] MEDS: ALBUTEROL SO4 2.5/IPRATROPIUM 0.5 INH SOL 3 ML VIAL.NEB. NEB SCH ×5 (04:48→20:55)
[2023-10-23] MEDS: GABAPENTIN 400 MG CAPSULE PO SCH ×3 (06:16→21:25)
[2023-10-23 08:55] LABS: HEMATOCRIT 39.9 % (35.4-49); HEMOGLOBIN 13.8 GM/dL (11.7-16.9); MCH 32.9 pg (25.7-33.7); MCHC 34.5 g/dl (32.0-35.9); MEAN CELL VOLUME 95.4 fl (80-96); MEAN PLT VOLUME 6.7 fl (7.5-11.1); PLATELET COUNT 347 10^3/uL (134-434); RBC 4.19 M/mm3 (4.00-5.60); RDW 13.1 % (11.9-15.9); WHITE BLOOD COUNT 6.2 K/mm3 (4.0-10.0)
[2023-10-23 10:33] LABS: POTASSIUM 4.3 mmol/L (3.5-5.1)
[2023-10-23 10:37] LABS: BLOOD UREA NITROGEN 10.4 mg/dL (7-18); CALCIUM 9.1 mg/dL (8.5-10.1)
[2023-10-23 10:41] LABS: CREATININE 0.6 mg/dL (0.55-1.3)
[2023-10-23] MEDS: methylPREDNISolone NA SUCC 40 MG/1 ML VIAL IVPUSH SCH ×2 (10:56→17:40)
[2023-10-23] MEDS: ENOXAPARIN NA (PORCINE) 40 MG/0.4 ML DISP.SYRIN SQ SCH (10:56)
[2023-10-23] MEDS: amLODIPine BESYLATE 5 MG TABLET (FP) PO SCH (10:57)
[2023-10-23] MEDS: PANTOPRAZOLE 20 MG TABLET PO SCH (10:57)
[2023-10-23] MEDS: BUDESONIDE/FORMETEROL FUMARATE 80/4.5 mcg INHALER IH SCH ×2 (10:57→21:25)
[2023-10-23] MEDS: CYANOCOBALAMIN 1,000 MCG TABLET (FP) PO SCH (10:57)
[2023-10-23] MEDS: MONTELUKAST NA 10 MG TABLET PO SCH (21:25)
[2023-10-23] MEDS: ACETAMINOPHEN 325 MG TABLET (FP) PO PRN (21:25)
[2023-10-24] MEDS: ALBUTEROL SO4 2.5/IPRATROPIUM 0.5 INH SOL 3 ML VIAL.NEB. NEB SCH ×6 (00:27→20:05)
[2023-10-24] MEDS: methylPREDNISolone NA SUCC 40 MG/1 ML VIAL IVPUSH SCH ×3 (02:57→17:46)
[2023-10-24] MEDS: GABAPENTIN 400 MG CAPSULE PO SCH ×3 (06:04→21:55)
[2023-10-24] MEDS: PANTOPRAZOLE 20 MG TABLET PO SCH (09:19)
[2023-10-24] MEDS: ENOXAPARIN NA (PORCINE) 40 MG/0.4 ML DISP.SYRIN SQ SCH (09:19)
[2023-10-24] MEDS: amLODIPine BESYLATE 5 MG TABLET (FP) PO SCH (09:19)
[2023-10-24] MEDS: CYANOCOBALAMIN 1,000 MCG TABLET (FP) PO SCH (09:19)
[2023-10-24] MEDS: BENZOCAINE/MENTH/CETYLPYRD CL 1 EACH LOZENGE MM PRN (09:20)
[2023-10-24] MEDS: BUDESONIDE/FORMETEROL FUMARATE 80/4.5 mcg INHALER IH SCH ×2 (11:13→21:55)
[2023-10-24 13:12] LABS: HEMATOCRIT 39.6 % (35.4-49); HEMOGLOBIN 13.5 GM/dL (11.7-16.9); MCH 32.7 pg (25.7-33.7); MCHC 34.1 g/dl (32.0-35.9); MEAN CELL VOLUME 96.1 fl (80-96); MEAN PLT VOLUME 6.6 fl (7.5-11.1); PLATELET COUNT 340 10^3/uL (134-434); RBC 4.12 M/mm3 (4.00-5.60); WHITE BLOOD COUNT 15.7 K/mm3 (4.0-10.0)
[2023-10-24 13:27] LABS: POTASSIUM 3.8 mmol/L (3.5-5.1)
[2023-10-24 13:29] LABS: CALCIUM 9.4 mg/dL (8.5-10.1)
[2023-10-24 13:30] LABS: ALBUMIN 3.6 g/dl (3.4-5.0); BLOOD UREA NITROGEN 12.6 mg/dL (7-18); MAGNESIUM 2.1 mg/dL (1.8-2.4)
[2023-10-24 13:33] LABS: PHOSPHOROUS 1.9 mg/dL (2.5-4.9)
[2023-10-24 13:34] LABS: BILIRUBIN,TOTAL 0.6 mg/dL (0.2-1)
[2023-10-24 13:35] LABS: TOT PROT 7.6 g/dl (6.4-8.2)
[2023-10-24 14:07] LABS: ANISOCYTOSIS 0; MACROCYTOSIS 0
[2023-10-24] MEDS ORDERED: SODIUM PHOSPHATE - 0 MM in SODIUM CHLORIDE 250 ML IVPB ONE (16:47)
[2023-10-24] MEDS ORDERED: SODIUM PHOSPHATE - 30 MM in SODIUM CHLORIDE 500 ML IVPB ONE (16:52)
[2023-10-24] MEDS: MONTELUKAST NA 10 MG TABLET PO SCH (21:55)
[2023-10-24] MEDS: ACETAMINOPHEN 325 MG TABLET (FP) PO PRN (22:12)
[2023-10-25] MEDS: methylPREDNISolone NA SUCC 40 MG/1 ML VIAL IVPUSH SCH ×2 (01:40→09:42)
[2023-10-25] MEDS: ALBUTEROL SO4 2.5/IPRATROPIUM 0.5 INH SOL 3 ML VIAL.NEB. NEB SCH ×6 (04:00→20:15)
[2023-10-25] MEDS: guaiFENesin/D-METHORPHAN HB 10 ML UNIT-DOSE CUPS PO PRN ×3 (04:04→20:59)
[2023-10-25] MEDS: GABAPENTIN 400 MG CAPSULE PO SCH ×3 (06:55→20:59)
[2023-10-25] MEDS: PANTOPRAZOLE 20 MG TABLET PO SCH (09:03)
[2023-10-25] MEDS: ENOXAPARIN NA (PORCINE) 40 MG/0.4 ML DISP.SYRIN SQ SCH (09:03)
[2023-10-25] MEDS: CYANOCOBALAMIN 1,000 MCG TABLET (FP) PO SCH (09:03)
[2023-10-25] MEDS: amLODIPine BESYLATE 5 MG TABLET (FP) PO SCH (09:03)
[2023-10-25] MEDS: BUDESONIDE/FORMETEROL FUMARATE 80/4.5 mcg INHALER IH SCH ×2 (09:06→21:00)
[2023-10-25 09:59] LABS: HEMATOCRIT 40.4 % (35.4-49); HEMOGLOBIN 13.7 GM/dL (11.7-16.9); MCH 32.4 pg (25.7-33.7); MCHC 33.8 g/dl (32.0-35.9); MEAN CELL VOLUME 95.9 fl (80-96); MEAN PLT VOLUME 6.6 fl (7.5-11.1); PLATELET COUNT 351 10^3/uL (134-434); RBC 4.21 M/mm3 (4.00-5.60); WHITE BLOOD COUNT 13.1 K/mm3 (4.0-10.0)
[2023-10-25 10:16] LABS: BLOOD UREA NITROGEN 13.4 mg/dL (7-18); CALCIUM 9.1 mg/dL (8.5-10.1); MAGNESIUM 2.1 mg/dL (1.8-2.4)
[2023-10-25 10:17] LABS: ALBUMIN 3.5 g/dl (3.4-5.0)
[2023-10-25 10:20] LABS: CREATININE 0.7 mg/dL (0.55-1.3); PHOSPHOROUS 3.4 mg/dL (2.5-4.9)
[2023-10-25 10:21] LABS: BILIRUBIN,TOTAL 0.9 mg/dL (0.2-1); TOT PROT 7.3 g/dl (6.4-8.2)
[2023-10-25] MEDS ORDERED: ALBUTEROL SO4 0.083% IH SOL 2.5 MG/3 ML VIAL.NEB. NEB PRN (12:03)
[2023-10-25 12:04] LABS: ANISOCYTOSIS 2+; MACROCYTOSIS 0
[2023-10-25] MEDS: predniSONE 20 MG TABLET (UD) PO SCH (13:14)
[2023-10-25] MEDS: MONTELUKAST NA 10 MG TABLET PO SCH (20:59)
[2023-10-25] MEDS: guaiFENesin 600 MG TABLET.ER (FP) PO SCH (21:01)
[2023-10-26] MEDS: ALBUTEROL SO4 2.5/IPRATROPIUM 0.5 INH SOL 3 ML VIAL.NEB. NEB SCH ×6 (00:58→19:48)
[2023-10-26] MEDS: GABAPENTIN 400 MG CAPSULE PO SCH ×3 (06:05→21:29)
[2023-10-26] MEDS: guaiFENesin 600 MG TABLET.ER (FP) PO SCH ×2 (10:39→21:28)
[2023-10-26] MEDS: ENOXAPARIN NA (PORCINE) 40 MG/0.4 ML DISP.SYRIN SQ SCH (10:40)
[2023-10-26] MEDS: predniSONE 20 MG TABLET (UD) PO SCH (10:40)
[2023-10-26] MEDS: amLODIPine BESYLATE 5 MG TABLET (FP) PO SCH (10:40)
[2023-10-26] MEDS: PANTOPRAZOLE 20 MG TABLET PO SCH (10:40)
[2023-10-26] MEDS: CYANOCOBALAMIN 1,000 MCG TABLET (FP) PO SCH (10:40)
[2023-10-26] MEDS: BUDESONIDE/FORMETEROL FUMARATE 80/4.5 mcg INHALER IH SCH ×2 (10:43→21:31)
[2023-10-26] MEDS: MONTELUKAST NA 10 MG TABLET PO SCH (21:28)
[2023-10-26] MEDS: guaiFENesin/D-METHORPHAN HB 10 ML UNIT-DOSE CUPS PO PRN (22:37)
[2023-10-27] MEDS: ALBUTEROL SO4 2.5/IPRATROPIUM 0.5 INH SOL 3 ML VIAL.NEB. NEB SCH ×5 (01:00→15:13)
[2023-10-27] MEDS: GABAPENTIN 400 MG CAPSULE PO SCH ×2 (06:22→13:42)
[2023-10-27] MEDS: ENOXAPARIN NA (PORCINE) 40 MG/0.4 ML DISP.SYRIN SQ SCH (10:30)
[2023-10-27] MEDS: PANTOPRAZOLE 20 MG TABLET PO SCH (10:31)
[2023-10-27] MEDS: BUDESONIDE/FORMETEROL FUMARATE 80/4.5 mcg INHALER IH SCH (10:31)
[2023-10-27] MEDS: CYANOCOBALAMIN 1,000 MCG TABLET (FP) PO SCH (10:31)
[2023-10-27] MEDS: guaiFENesin 600 MG TABLET.ER (FP) PO SCH (10:31)
[2023-10-27] MEDS: predniSONE 20 MG TABLET (UD) PO SCH (10:31)
[2023-10-27] MEDS: amLODIPine BESYLATE 5 MG TABLET (FP) PO SCH (10:57)
[2023-10-27 15:15] VITALS: BP 118/70; PULSE 76; RESP 18; TEMP 98
== END 2023-10-27 16:37 | disposition home or self-care (01) | DRG 192 ==
LOC: JER 12:41 → JERBED 16:15 → OBSVTOIN 16:53 → J8W 20:49
PROVIDERS: ADMIT Internal Medicine; ATTEND Internal Medicine
DX: J44.1 Chronic obstructive pulmonary disease with (acute) exacerbation (principal); I10 Essential (primary) hypertension; K21.9 Gastro-esophageal reflux disease without esophagitis; Z99.81 Dependence on supplemental oxygen
CPT/HCPCS: 0241U-QW; 36415; 71045-TC-FY; 80048; 80053; 83735; 84100; 84484; 85025; 85027; 85610; 85730; 93005; 93010; 94640; 94761; 99285-25; G0378